=== PATIENT | female | born 1950 | race Caucasian/White ===

== ENCOUNTER → 2017-04-30 08:02 | Outpatient (CLI) | payer MEDICARE, OTHER, SELFPAY ==
--- NOTE | 2017-04-30 08:12 | US_ITS ---
STUDY: ABDOMINAL ULTRASOUND - RIGHT UPPER QUADRANT REASON FOR VISIT: Female, 66 years old. Right upper quadrant pain. TECHNIQUE: Ultrasound evaluation of the right upper quadrant was performed with real-time and static skaggs-scale imaging. TECHNICAL QUALITY: Adequate. COMPARISON: Comparison is made with prior ultrasound of the abdomen dated August 31, 2014. FINDINGS: Liver: The liver measures 14.9 cm. There is increased echogenicity consistent with fatty infiltration. The bile ducts are within normal limits. There is hepatic color flow. The direction of portal flow is hepatopetal. There is no demonstrated mass lesion. Gallbladder: Normal distended gallbladder. The gallbladder wall measures 2.0 mm. There is a positive sonographic Townsend's sign. There is no pericholecystic fluid. There are no gallstones. Common Bile Duct (C.B.D.): The common bile duct measures 2.6 mm. Pancreas: Normal size of the head, body of the pancreas. The tail portion of the pancreas is obscured due to overlying bowel gas. There is normal echogenicity of the pancreas. There is no demonstrated pancreatic mass or cyst. Right Kidney: Normal size of the right kidney. The right kidney measures 10.0 cm x 4.7 cm x 3.9 cm. Normal renal cortex. The right cortex measures 2.1 cm. There is no demonstrated renal mass or cyst. There is no right hydronephrosis. US/Abdomen Limited IMPRESSION: Fatty infiltration of the liver. Electronically Signed: Kam Del Cid MD at 15:36 EST Tel [phone], Service support ,
[2017-04-30 10:20] LABS: Absolute Lymphocyte Count 2.03 X10^3/ul (0.83-4.51); Absolute Neutrophil Count 5.2 X10^3/uL (2.0-7.7); Basophil# 0.05 X10^3/uL; Basophil% 0.6 % (0-1); Eosinophil# 0.22 X10^3/uL; Eosinophils% 2.7 % (0-5); Hematocrit 43.1 % (37-47); Hemoglobin 13.5 g/dl (12.0-15.0); Lymphocyte # 2.03 X10^3/ul (4.0); Lymphocyte % 24.9 % (19-41); Mean Corp Hgb Conc 31.3 g/gl (32-36); Mean Corpuscular Hgb 28.2 pg (27.0-32.0); Mean Platelet Vol. 10.4 fl (6.2-12.0); Monocyte# 0.62 X10^3/uL; Monocyte% 7.6 % (0-10); Neutrophil # 5.21 X10^3/uL (2.7-7.7); Platelet Count 435 K/mm3 (150-450); RBC Distribution Width CV 15.1 % (11.6-14.6); RBC Distribution Width SD 49.5 fl (35.1-43.9); Red Blood Count 4.79 M/mm3 (4.2-5.4); White Blood Count 8.2 K/mm3 (4.4-11.0)
[2017-04-30 10:25] LABS: POSITIVE COUNT NO; POSITIVE DIFFERENTIAL NO; POSITIVE MORPHOLOGY NO
[2017-04-30 10:44] LABS: ALB/GLOB Ratio 0.7 RATIO (0.9-2.4); AST(SGOT) 23 U/L (15-37); Alanine Aminotransfer ALT/SGPT 30 U/L (13-56); Albumin, Serum 3.1 g/dL (3.2-5.0); Alkaline Phosphatase 74 U/L (45-117); Anion Gap 6 (5-15); BUN 10 mg/dL (7-18); BUN/Creat Ratio 12.8 RATIO (10-20); Calcium,Total 8.6 mg/dL (8.5-10.1); Chloride 104 mmol/L (98-107); Cholesterol 141 mg/dL (200); Creatinine, Serum 0.78 mg/dL (0.55-1.02); EST Glomerular Filtration Rate 78 mL/min (>60); Est Glom Filt Rate - Afr Amer 94 mL/min (>60); Globulin 4.2 g/dL (2.2-4.2); Glucose 92 mg/dL (74-106); High Density Lipoprotein 42 mg/dL; Potassium 3.9 mmol/L (3.5-5.1); Protein, Total 7.3 g/dL (6.4-8.2); Sodium Level 141 mmol/L (136-145); Thyroid Stim Hormone (TSH) 0.69 uIU/mL (0.358-3.74); Triglycerides 161 mg/dL; Very Low Density Lipoprotein 32 mg/dL (5-40)
== END ==
PROVIDERS: Family Provider Family Medicine; PCP Family Medicine; Visit Provider Family Medicine
DX: Z00.00 Encounter for general adult medical examination without abnormal findings (principal); E03.9 Hypothyroidism, unspecified; R10.11 Right upper quadrant pain
CPT/HCPCS: 36415; 76705; 80053; 80061; 84443; 85025

== ENCOUNTER → 2017-10-28 08:57 | Outpatient (CLI) | payer MEDICARE, OTHER, SELFPAY ==
[2017-10-28 10:35] LABS: Thyroid Stim Hormone (TSH) 0.37 uIU/mL (0.358-3.74)
== END ==
PROVIDERS: Family Provider Family Medicine; PCP Family Medicine; Visit Provider Family Medicine
DX: E03.9 Hypothyroidism, unspecified (principal)
CPT/HCPCS: 36415; 84443

== ENCOUNTER → 2018-05-11 12:47 | Outpatient (CLI) | payer MEDICARE, OTHER, SELFPAY ==
--- NOTE | 2018-05-11 12:52 | BI_ITS ---
MAMMOGRAPHY - BILATERAL SCREENING REASON FOR EXAM: Female, 67 years old. Routine annual screening examination. PERTINENT HISTORY: Sister with breast cancer. Mother with breast cancer. TECHNIQUE: Digital bilateral breast aime (3D mammographic acquisition) in the CC and MLO projections. 2-D mediolateral oblique (MLO) and craniocaudad (CC) views of both breasts were obtained. CAD: Full Field Digital Mammography with Computer Added Detection was performed. COMPARISON: Comparison is made with prior study dated March 27, 2017 and March 09, 2015. FINDINGS: Breast Composition: There are scattered areas of fibroglandular density. There is a 5.9 mm x 4.5 mm well-defined nodule in the inferior slightly medial portion of the left breast. Correlation with ultrasound is recommended. Stable small bilateral axillary lymph nodes. No other significant abnormalities are identified. There has been no significant change since the prior study. BI/SCREENING MAMM (CAD), BILAT IMPRESSION: 5.9 mm x 4.5 mm well-defined nodule in the slightly inferior medial aspect of the left breast as described. Correlation with ultrasound is recommended. ASSESSMENT CATEGORY: BIRADS Category 0: Incomplete. Need additional imaging evaluation. A letter regarding these results will be sent to the patient by the facility within 30 days. Approximately 10% of breast cancers are not detected by mammography. A normal mammogram should not delay biopsy of a clinically suspicious abnormality. [id number] Electronically Signed: Kam Del Cid, at 14:47 EST , Service support ,
== END ==
PROVIDERS: Family Provider Family Medicine; PCP Family Medicine; Referring Provider Family Medicine; Visit Provider Family Medicine
DX: Z12.31 Encounter for screening mammogram for malignant neoplasm of breast (principal)
CPT/HCPCS: 77063; 77067

== ENCOUNTER → 2018-05-13 10:08 | Outpatient (CLI) | payer MEDICARE, OTHER, SELFPAY ==
--- NOTE | 2018-05-13 10:09 | US_ITS ---
STUDY: ULTRASOUND BREAST - LEFT REASON FOR EXAM: Female, 67 years old. Abnormal screening mammogram. TECHNIQUE: Axial and longitudinal images of the LEFT breast were performed with a high resolution ultrasound transducer. COMPARISON: Comparison is made with prior mammogram dated May 11, 2018. FINDINGS: LEFT Breast: There is a 4 mm x 5 mm x 2 mm cyst at the 6:00 position of the breast at 4 cm from nipple. There is also evidence of a 6 mm x 5 mm x 2 mm cyst at the 7:00 position of the breast at 5 cm from the nipple. US/Breast Limited Unilateral IMPRESSION: 2 small cysts in the inferior medial portion of the left breast. Routine annual mammographic follow-up is recommended. ASSESSMENT CATEGORY: BIRADS Category 2: Benign. A letter regarding these results will be sent to the patient by the facility within 30 days. Electronically Signed: Kam Del Cid, at 12:31 EST , Service support ,
== END ==
PROVIDERS: Family Provider Family Medicine; PCP Family Medicine; Referring Provider Family Medicine; Visit Provider Family Medicine
DX: R92.8 Other abnormal and inconclusive findings on diagnostic imaging of breast (principal); N63.0 Unspecified lump in unspecified breast
CPT/HCPCS: 76642

== ENCOUNTER → 2018-05-22 09:23 | Outpatient (CLI) | payer MEDICARE, OTHER, SELFPAY ==
[2018-05-22 10:15] LABS: Absolute Lymphocyte Count 1.59 X10^3/ul (0.83-4.51); Absolute Neutrophil Count 4.6 X10^3/uL (2.0-7.7); Basophil# 0.04 X10^3/uL; Basophil% 0.6 % (0-1); Eosinophil# 0.11 X10^3/uL; Eosinophils% 1.6 % (0-5); Hematocrit 44.2 % (37-47); Hemoglobin 14.2 g/dl (12.0-15.0); Lymphocyte # 1.59 X10^3/ul (4.0); Lymphocyte % 22.5 % (19-41); Mean Corp Hgb Conc 32.1 g/gl (32-36); Mean Corpuscular Hgb 28.7 pg (27.0-32.0); Mean Corpuscular Volume 89.3 fL (81-99); Mean Platelet Vol. 10.4 fl (6.2-12.0); Monocyte# 0.71 X10^3/uL; POSITIVE COUNT NO; POSITIVE DIFFERENTIAL NO; POSITIVE MORPHOLOGY NO; Platelet Count 415 K/mm3 (150-450); RBC Distribution Width CV 14.6 % (11.6-14.6); RBC Distribution Width SD 47.2 fl (35.1-43.9); Red Blood Count 4.95 M/mm3 (4.2-5.4); White Blood Count 7.1 K/mm3 (4.4-11.0)
[2018-05-22 10:41] LABS: ALB/GLOB Ratio 1.1 RATIO (0.9-2.4); AST(SGOT) 18 U/L (15-37); Alanine Aminotransfer ALT/SGPT 39 U/L (13-56); Albumin, Serum 3.6 g/dL (3.2-5.0); Alkaline Phosphatase 90 U/L (45-117); Anion Gap 6 (5-15); BUN 20 mg/dL (7-18); BUN/Creat Ratio 20.8 RATIO (10-20); CRP 7.77 mg/L (0.0-3.0); Chloride 106 mmol/L (98-107); Creatinine, Serum 0.96 mg/dL (0.55-1.02); EST Glomerular Filtration Rate 61 mL/min (>60); Est Glom Filt Rate - Afr Amer 74 mL/min (>60); Globulin 3.3 g/dL (2.2-4.2); Glucose 91 mg/dL (74-106); Lipase 85 U/L (73-393); Protein, Total 6.9 g/dL (6.4-8.2); Sodium Level 143 mmol/L (136-145)
== END ==
PROVIDERS: Family Provider Family Medicine; PCP Family Medicine; Referring Provider Family Medicine; Visit Provider Family Medicine
DX: R10.13 Epigastric pain (principal)
CPT/HCPCS: 36415; 80053; 83690; 85025; 86140

== ENCOUNTER → 2018-05-26 09:27 | Outpatient (CLI) | payer MEDICARE, OTHER, SELFPAY ==
[2018-05-28 15:56] LABS: H. PYLORI STOOL AG Negative (Negative)
== END ==
PROVIDERS: Family Provider Family Medicine; PCP Family Medicine; Referring Provider Family Medicine; Visit Provider Family Medicine
DX: R10.13 Epigastric pain (principal)

== ENCOUNTER 2018-06-01 08:10 | Inpatient (IN) | payer MEDICARE, OTHER, SELFPAY ==
[2018-06-01 08:11] VITALS: BP 154/78; PULSE 83; RESP 15; TEMP 36.4; O2SAT 100; BMI 33.3
--- NOTE | 2018-06-01 08:32 | EKG12_ITS ---
Test Reason : ABD PAIN Blood Pressure : / mmHG Vent. Rate : 073 BPM Atrial Rate : 073 BPM P-R Int : 202 ms QRS Dur : 082 ms QT Int : 406 ms P-R-T Axes : 050 000 044 degrees QTc Int : 447 ms Sinus rhythm with Fusion complexes Otherwise normal ECG Confirmed by MIKE GUDINO, ISAURA ([id number]), proposal editor MARIAMA PÉREZ ([id number]) on 06/03/2018 1:45:51 PM Referred By: Steve Hill Confirmed By:ISAURA MCKEON MD
--- NOTE | 2018-06-01 08:32 | US_ITS ---
STUDY: ABDOMINAL ULTRASOUND - RIGHT UPPER QUADRANT REASON FOR VISIT: Female, 67 years old. Severe right upper quadrant pain with nausea and vomiting. TECHNIQUE: Ultrasound evaluation of the right upper quadrant was performed with real-time and static skaggs-scale imaging. TECHNICAL QUALITY: Limited. Examination limited due to the patient?s condition. COMPARISON: Comparison is made with prior examination dated April 30, 2017. FINDINGS: Liver: The liver measures 16.1 cm. There is normal echogenicity of the liver. The bile ducts are within normal limits. There is hepatic color flow. The direction of portal flow is hepatopetal. There is no demonstrated mass lesion. Gallbladder: There is a distended gallbladder. The gallbladder wall measures 3.1 mm. There is a negative sonographic Townsend's sign. There is no pericholecystic fluid. Multiple tiny layering gallstones are seen along the dependent portion of the gallbladder lumen. Common Bile Duct (C.B.D.): The common bile duct measures 5.9 mm. Pancreas: Normal size of the head, body and tail of the pancreas. The pancreatic duct measures 2.4 mm in the body of the pancreas. There is normal echogenicity of the pancreas. There is no demonstrated pancreatic mass or cyst. Right Kidney: Normal size of the right kidney. The right kidney measures 10.2 cm by 5.8 cm x 3.7 cm. Normal renal cortex. The right cortex measures 1.6 cm. There is no demonstrated renal mass or cyst. There is no right hydronephrosis. US/Gallbladder IMPRESSION: Findings suggestive of tiny gallstones along the dependent portion of the gallbladder lumen. Electronically Signed: Kam Del Cid, at 10:45 EDT , Service support ,
--- NOTE | 2018-06-01 08:33 | ED.VIS.GEN ---
History of Present Illness Chief Complaint: Abd Pain Informant: Patient, Family Onset: Weeks - 4-5 Context: Gradual Onset Timing: Intermittent, Waxes and wanes - this AM, constant and colicky Quality: ache Location: RUQ Current Severity: Moderate Maximum Severity: Severe - this AM Worsened by: unknown; cannot tell if an association with meals Relieved by: nothing Associated Symptoms: n/v this AM Narrative: Patient has been having episodes of this similar discomfort for the past month or more, cannot tell in association with food although eating seems to produce more gas. Her bowel movements have been normal in caliber and frequency, without blood or melena. She has had nausea on occasion but the pain became much worse this morning within the past 3 hours and associated with nausea and vomiting as well. Pain radiates into her right mid back around the lower part of her shoulder blade. She denies any itching or jaundice. She feels a little short of breath now and anxious, but that has not been part of the other episodes. No chest discomfort. Discomfort is nonpleuritic. No recent coughing. No fevers. No urinary symptoms. She was put on omeprazole about a month ago for these symptoms, a couple weeks ago was placed on some other different stomach medicine in addition, and none of it is helping. She has had no testing yet. Prior tubal ligation to [place], no other abdominal surgeries. - Past Medical History (1) HTN (hypertension) Status: Chronic (2) Thyroid cancer Status: Resolved (3) Hypothyroidism Status: Chronic Past Medical History - Allergies and Home Meds Allergies/Adverse Reactions: Allergies Sulfa (Sulfonamide Antibiotics) Allergy (Verified 06/01/18 08:10) Unknown Primary Care Physician: Steve Hill MD [Primary Care Provider] - Surgical History: - - BTL. Lives: Alone - Smoking Status: Never smoker Drugs: None Review of Systems General: Denies: Chills, Fever, Sweats Eyes: Denies: Visual changes - bilaterally, Diplopia ENT: Denies: Rhinorrhea, Sore throat Cardiovascular: Denies: Chest pain, Palpitations Respiratory: Denies: Dyspnea, Cough, Dyspnea on exertion Gastrointestinal: Reports: Abdominal pain, Nausea, Vomiting. Denies: Diarrhea, Constipation, Melena, Hematochezia Genitourinary: Denies: Dysuria, Hematuria, Frequency Musculoskeletal: Denies: Back pain, Extremity Pain Skin: Denies: Rash, Wounds Neurological: Denies: Headache, Weakness, Numbness Psych: Reports: Anxiety. Denies: Suicidal thoughts Physical Exam Vital Signs/Narrative: Vital Signs Temp Pulse Resp BP Pulse Ox 06/01/18 08:11 97.5 F L 83 15 154/78 H 100 Inital Vital Signs reviewed: Yes General: Well nourished, Well developed, Acute Distress - mild, pain/nausea Head: Normocephalic, Atraumatic Eyes: Perrl, EOMI ENT: Moist mucous membranes, No rhinorrhea Neck: Supple, Nontender Cardiovascular: Regular rate, Regular rhythm, No murmurs, Normal S1, Normal S2. Negative for: Tachycardia Respiratory: No distress - and no splinting on deep inspiration, CTA bilaterally, Chest nontender Abdomen: Soft, Nondistended, Normal bowel sounds, Tender - RUQ>epigastrium. otherwise, NT., Guarding - RUQ, Townsend's sign. Negative for: Rebound tenderness Back: Nontender, Normal Inspection. Negative for: CVA tenderness Extremities: Nontender, No edema Skin: Normal color, No rash Neurological: Alert, Oriented x3, Cranial nerves II-XII grossly intact, Normal Strength, Normal Sensation Psychological: Normal Mood, - - anxious Diagnostic/Tx/Re-eval Impressions Gallbladder Ultrasound 06/01/18 08:32 IMPRESSION: Findings suggestive of tiny gallstones along the dependent portion of the gallbladder lumen. Electronically Signed: Kam Del Cid, at 10:45 EDT , Service support , 06/01/18 08:32 Gallbladder [US] Stat Laboratory Results 06/01/18 06/01/18 08:20 08:20 WBC 8.0 RBC 4.62 Hgb 13.5 Hct 41.0 MCV 88.7 MCH 29.2 MCHC 32.9 RDW 14.8 H RDW Differential 47.8 H Plt Count 412 MPV 10.6 Immature Gran % (Auto) 0.100 Neut % (Auto) 61.1 Lymph % (Auto) 30.3 [place] % (Auto) 6.5 Eos % (Auto) 1.6 Baso % (Auto) 0.4 Absolute Neuts (auto) 4.9 Absolute Lymphs (auto) 2.42 Total Counted Not Reportable Sodium 142 Potassium 3.8 Chloride 109 H Carbon Dioxide 26.0 Anion Gap 7 BUN 19 H Creatinine 0.96 Estim Creat Clear Calc 51.78 Est GFR (MDRD) Af Amer 74 Est GFR (MDRD) Non-Af 61 BUN/Creatinine Ratio 19.8 Glucose 113 H Calcium 8.8 Total Bilirubin 0.40 AST 51 H ALT 41 Alkaline Phosphatase 106 Troponin I < 0.015 Total Protein 7.2 Albumin 3.3 Globulin 3.9 Albumin/Globulin Ratio 0.8 L Lipase 7082 H - Rhythm Strip Rhythm Strip: Sinus Rhythm Rate: 75 Ectopy: PVC(s) - EKG Initial EKG Interpretation: Sinus Rhythm, No Acute Injury Pattern, - - PVC. otherwise, nml EKG - Medical Decision Making Patient is much better with treatment. Cardiac workup is negative, ultrasound shows small biliary stones, she is very tender there, suspect acute cholecystitis and pancreatitis as a result of possible stone passage, however her liver enzymes and bilirubin are normal. Discussed with Dr. Rendon who will admit to floor. ED Disposition - Plan for ED Patient: Disposition: Acute Care Hospital [facility] Diagnosis: Acute calculous cholecystitis, Acute pancreatitis Referrals: Steve Hill MD [Primary Care Provider] -
--- NOTE | 2018-06-01 08:37 | ED.DCSUM_ITS ---
History of Present Illness Chief Complaint: Abd Pain Informant: Patient, Family Onset: Weeks - 4-5 Context: Gradual Onset Timing: Intermittent, Waxes and wanes - this AM, constant and colicky Quality: ache Location: RUQ Current Severity: Moderate Maximum Severity: Severe - this AM Worsened by: unknown; cannot tell if an association with meals Relieved by: nothing Associated Symptoms: n/v this AM Narrative: Patient has been having episodes of this similar discomfort for the past month or more, cannot tell in association with food although eating seems to produce more gas. Her bowel movements have been normal in caliber and frequency, wit hout blood or melena. She has had nausea on occasion but the pain became much worse this morning within the past 3 hours and associated with nausea and vomiting as well. Pain radiates into her right mid back around the lower part of her shoulder blade. She denies any itching or jaundice. She feels a little short of breath now and anxious, but that has not been part of the other episodes. No chest discomfort. Discomfort is nonpleuritic. No recent coughing. No fevers. No urinary symptoms. She was put on omeprazole about a month ago for these symptoms, a couple weeks ago was placed on some other different stomach medicine in addition, and none of it is helping. She has had no testing yet. Prior tubal ligation to [place], no other abdominal surgeries. - Past Medical History (1) HTN (hypertension) Status: Chronic (2) Thyroid cancer Status: Resolved (3) Hypothyroidism Status: Chronic Past Medical History - Allergies and Home Meds Allergies/Adverse Reactions: Allergies Sulfa (Sulfonamide Antibiotics) Allergy (Verified 06/01/18 08:10) Unknown Primary Care Physician: Steve Hill MD [Primary Care Provider] - Surgical History: - - BTL. Lives: Alone - Smoking Status: Never smoker Drugs: None Review of Systems General: Denies: Chills, Fever, Sweats Eyes: Denies: Visual changes - bilaterally, Diplopia ENT: Denies: Rhinorrhea, Sore throat Cardiovascular: Denies: Chest pain, Palpitations Respiratory: Denies: Dyspnea, Cough, Dyspnea on exertion Gastrointestinal: Reports: Abdominal pain, Nausea, Vomiting. Denies: Diarrhea, Constipation, Melena, Hematochezia Genitourinary: Denies: Dysuria, Hematuria, Frequency Musculoskeletal: Denies: Back pain, Extremity Pain Skin: Denies: Rash, Wounds Neurological: Denies: Headache, Weakness, Numbness Psych: Reports: Anxiety. Denies: Suicidal thoughts Physical Exam Vital Signs/Narrative: Vital Signs Temp Pulse Resp BP Pulse Ox 06/01/18 08:11 97.5 F L 83 15 154/78 H 100 Inital Vital Signs reviewed: Yes General: Well nourished, Well developed, Acute Distress - mild, pain/nausea Head: Normocephalic, Atraumatic Eyes: Perrl, EOMI ENT: Moist mucous membranes, No rhinorrhea Neck: Supple, Nontender Cardiovascular: Regular rate, Regular rhythm, No murmurs, Normal S1, Normal S2. Negative for: Tachycardia Respiratory: No distress - and no splinting on deep inspiration, CTA bilaterally, Chest nontender Abdomen: Soft, Nondistended, Normal bowel sounds, Tender - RUQ>epigastrium. otherwise, NT., Guarding - RUQ, Townesnd's sign. Negative for: Rebound tenderness Back: Nontender, Normal Inspection. Negative for: CVA tenderness Extremities: Nontender, No edema Skin: Normal color, No rash Neurological: Alert, Oriented x3, Cranial nerves II-XII grossly intact, Normal Strength, Normal Sensation Psychological: Normal Mood, - - anxious Diagnostic/Tx/Re-eval Impressions Gallbladder Ultrasound 06/01/18 08:32 IMPRESSION: Findings suggestive of tiny gallstones along the dependent portion of the gallbladder lumen. Electronically Signed: Kam Del Cid, at 10:45 EDT , Service support , 06/01/18 08:32 Gallbladder [US] Stat Laboratory Results 06/01/18 06/01/18 08:20 08:20 WBC 8.0 RBC 4.62 Hgb 13.5 Hct 41.0 MCV 88.7 MCH 29.2 MCHC 32.9 RDW 14.8 H RDW Differential 47.8 H Plt Count 412 MPV 10.6 Immature Gran % (Auto) 0.100 Neut % (Auto) 61.1 Lymph % (Auto) 30.3 [place] % (Auto) 6.5 Eos % (Auto) 1.6 Baso % (Auto) 0.4 Absolute Neuts (auto) 4.9 Absolute Lymphs (auto) 2.42 Total Counted Not Reportable Sodium 142 Potassium 3.8 Chloride 109 H Carbon Dioxide 26.0 Anion Gap 7 BUN 19 H Creatinine 0.96 Estim Creat Clear Calc 51.78 Est GFR (MDRD) Af Amer 74 Est GFR (MDRD) Non-Af 61 BUN/Creatinine Ratio 19.8 Glucose 113 H Calcium 8.8 Total Bilirubin 0.40 AST 51 H ALT 41 Alkaline Phosphatase 106 Troponin I < 0.015 Total Protein 7.2 Albumin 3.3 Globulin 3.9 Albumin/Globulin Ratio 0.8 L Lipase 7082 H - Rhythm Strip Rhythm Strip: Sinus Rhythm Rate: 75 Ectopy: PVC(s) - EKG Initial EKG Interpretation: Sinus Rhythm, No Acute Injury Pattern, - - PVC. otherwise, nml EKG - Medical Decision Making Patient is much better with treatment. Cardiac workup is negative, ultrasound shows small biliary stones, she is very tender there, suspect acute cholecystitis and pancreatitis as a result of possible stone passage, however her liver enzymes and bilirubin are normal. Discussed with Dr. Rendon who will admit to floor. ED Disposition - Plan for ED Patient: Disposition: Acute Care Hospital [facility] Diagnosis: Acute calculous cholecystitis, Acute pancreatitis Referrals: Steve Hill MD [Primary Care Provider] -
[2018-06-01 08:42] LABS: Absolute Lymphocyte Count 2.42 X10^3/ul (0.83-4.51); Absolute Neutrophil Count 4.9 X10^3/uL (2.0-7.7); Basophil# 0.03 X10^3/uL; Basophil% 0.4 % (0-1); Eosinophil# 0.13 X10^3/uL; Eosinophils% 1.6 % (0-5); Hemoglobin 13.5 g/dl (12.0-15.0); Lymphocyte # 2.42 X10^3/ul (4.0); Lymphocyte % 30.3 % (19-41); Mean Corp Hgb Conc 32.9 g/gl (32-36); Mean Corpuscular Hgb 29.2 pg (27.0-32.0); Mean Corpuscular Volume 88.7 fL (81-99); Mean Platelet Vol. 10.6 fl (6.2-12.0); Monocyte# 0.52 X10^3/uL; Monocyte% 6.5 % (0-10); Neutrophil # 4.89 X10^3/uL (2.7-7.7); Neutrophil % 61.1 % (47-70); Platelet Count 412 K/mm3 (150-450); RBC Distribution Width CV 14.8 % (11.6-14.6); RBC Distribution Width SD 47.8 fl (35.1-43.9); Red Blood Count 4.62 M/mm3 (4.2-5.4)
[2018-06-01 08:43] LABS: POSITIVE COUNT NO; POSITIVE DIFFERENTIAL NO; POSITIVE MORPHOLOGY NO
[2018-06-01] MEDS: Ketorolac 30 MG/ML Syringe 15 MG IV (08:43)
[2018-06-01] MEDS: Morphine 4 MG/ML Syringe IV ×3 (08:43→17:58)
[2018-06-01] MEDS: Ondansetron 4 MG/2 ML Vial IV ×3 (08:44→21:56)
[2018-06-01] MEDS: 0.9% Normal Saline 1,000 ML 200 ML IV (08:44)
[2018-06-01 08:56] LABS: ALB/GLOB Ratio 0.8 RATIO (0.9-2.4); AST(SGOT) 51 U/L (15-37); Alanine Aminotransfer ALT/SGPT 41 U/L (13-56); Albumin, Serum 3.3 g/dL (3.2-5.0); Alkaline Phosphatase 106 U/L (45-117); Anion Gap 7 (5-15); BUN 19 mg/dL (7-18); BUN/Creat Ratio 19.8 RATIO (10-20); Calcium,Total 8.8 mg/dL (8.5-10.1); Chloride 109 mmol/L (98-107); Creatinine, Serum 0.96 mg/dL (0.55-1.02); EST Glomerular Filtration Rate 61 mL/min (>60); Est Glom Filt Rate - Afr Amer 74 mL/min (>60); Estimated Creatinine Clearance 51.78 ml/min; Globulin 3.9 g/dL (2.2-4.2); Glucose 113 mg/dL (74-106); Lipase 7082 U/L (73-393); Potassium 3.8 mmol/L (3.5-5.1); Protein, Total 7.2 g/dL (6.4-8.2); Sodium Level 142 mmol/L (136-145)
[2018-06-01 10:18] VITALS: BP 134/71; PULSE 62; RESP 17; O2SAT 96
--- NOTE | 2018-06-01 11:33 | CASEMGMT ---
RN CM Assessment Introduced role of RN CM to patient, friend Shivani, and rivas Anand at bedside.? Patient is alert, oriented and able?to participate in RN CM Assessment. ?Care providers, pharmacy, and demographics verified. Presentation: CC: Abd Pain Admit Dx: Gallstone Pancreatitis Re-Admit: No Barriers/Issues: None PCP: Dr Steve Hill Specialists: None Preferred Pharmacy: [facility] Insurance: Medicare A&B, AARP Rx Benefit:?Yes-[employer] ?LNOK: Emery Dumont LW/HPOA: States has both, unsure if on file at [facility], Rivas Dumont Living Arrangements:? Lives alone in a 2 story home, 2 steps to enter ADL?s: Independent with ambulation and ADL's. Works. Transportation: Patient drives, DC- Friend Shivani, Rivas Anand, or other family member DME: None HHC: None SNF: None Goal: Home DC PLAN: Home with no anticipated needs identified at this time. Helio Bolden RNCM
[2018-06-01 12:01] VITALS: BMI 32.0
[2018-06-01 12:09] VITALS: BP 130/63; PULSE 70; RESP 18; TEMP 37.1; O2SAT 99
--- NOTE | 2018-06-01 12:34 | PCM.HP.STD ---
Problem List (1) Gallstone pancreatitis Status: Acute History of Present Illness Date of Admission: 06/01/18 The patient is a 67 year old F who came to the emergency room epigastric pain. The patient reports that for the last few weeks she has been having right upper quadrant pain but this morning she had severe epigastric pain and vomiting. She is not having any fevers or chills. Past Medical History Past Medical History (Chronic Problems): Chronic Problems HTN (hypertension) (Chronic) Hypothyroidism (Chronic) Allergies Sulfa (Sulfonamide Antibiotics) Allergy (Verified 06/01/18 08:10) Unknown Home Medications: Ambulatory Orders Medication Instructions Recorded Levothyroxine Sodium [Levoxyl] 150 mcg PO DAILY 03/16/16 Losartan Potassium [Cozaar] 25 mg PO DAILY 03/16/16 Bupropion HCl [Wellbutrin Xl] 300 mg PO DAILY 06/01/18 Omeprazole [Prilosec] 20 mg PO DAILY 06/01/18 Surgical History: - - BTL. Thyroidectomy Lives: Alone - Smoking Status: Never smoker Drugs: None - *Family History Maternal History Items: No pertinent history Review of Systems Constitutional: Reports: Anorexia. Denies: Chills, Fever HEENT: Denies: Difficulty Swallowing Cardiovascular: Denies: Chest Pain Respiratory: Denies: Cough, Shortness of Breath Gastrointestinal: Reports: Abdominal Pain, Nausea, Vomiting. Denies: Constipation, Diarrhea Genitourinary: Denies: Dysuria Musculoskeletal: Denies: Joint Tenderness Skin: Denies: Jaundice Neurological: Denies: Difficulty swallowing Psychiatric: Denies: Anxiety Hematologic/ Lymphatic: Denies: Anemia VTE Information - Inpt Only VTE Present on Admission: No VTE Mechan Device Prophylaxis: SCD's Patient Problems: Active and Suspected Problems Acute calculous cholecystitis (Acute) Acute pancreatitis (Acute) Gallstone pancreatitis (Acute) - Physical Exam General: Alert, Oriented x3, Cooperative Neck: No JVD Lungs: Normal air movement Cardiovascular: Regular rate, Regular Rhythm Abdomen: Soft, Non-Distended, Tender Extremities: No clubbing Skin: No rashes Musculoskeletal: No Muscle Wasting Neurological: Cranial nerves II-XII grossly intact Psych/Mental Status: Normal Affect Vital Signs Temp Pulse Resp BP Pulse Ox 98.7 F 70 18 130/63 H 99 06/01/18 12:09 06/01/18 12:09 06/01/18 12:09 06/01/18 12:09 06/01/18 12:09 Oxygen Delivery Method Room Air Weight: 201 lb 8.04 oz Body Mass Index (BMI) 32.0 Laboratory Tests Past 24 Hrs 06/01/18 06/01/18 08:20 08:20 WBC 8.0 RBC 4.62 Hgb 13.5 Hct 41.0 MCV 88.7 MCH 29.2 MCHC 32.9 RDW 14.8 H RDW Differential 47.8 H Plt Count 412 MPV 10.6 Immature Gran % (Auto) 0.100 Neut % (Auto) 61.1 Lymph % (Auto) 30.3 [place] % (Auto) 6.5 Eos % (Auto) 1.6 Baso % (Auto) 0.4 Absolute Neuts (auto) 4.9 Absolute Lymphs (auto) 2.42 Total Counted Not Reportable Sodium 142 Potassium 3.8 Chloride 109 H Carbon Dioxide 26.0 Anion Gap 7 BUN 19 H Creatinine 0.96 Estim Creat Clear Calc 51.78 Est GFR (MDRD) Af Amer 74 Est GFR (MDRD) Non-Af 61 BUN/Creatinine Ratio 19.8 Glucose 113 H Calcium 8.8 Total Bilirubin 0.40 AST 51 H ALT 41 Alkaline Phosphatase 106 Troponin I < 0.015 Total Protein 7.2 Albumin 3.3 Globulin 3.9 Albumin/Globulin Ratio 0.8 L Lipase 7082 H Clinical Impression(s) from Imaging Studies Gallbladder Ultrasound 06/01/18 08:32 IMPRESSION: Findings suggestive of tiny gallstones along the dependent portion of the gallbladder lumen. Electronically Signed: Kam Del Cid, at 10:45 EDT , Service support , Assessment/Plan All Active Problems Thyroid cancer (Resolved) Acute calculous cholecystitis (Acute) Acute pancreatitis (Acute) Gallstone pancreatitis (Acute) 67-year-old female with gallstone pancreatitis 1. Patient has small gallstones on ultrasound of her gallbladder with no thickening. Her white count is normal. She does have an elevated lipase. She likely has gallstone pancreatitis. Her LFTs are normal today and I believe she may have passed a stone causing the pancreatitis. I will recheck labs in the morning and keep her n.p.o. and give her IV fluids. I will also start cefotetan in case there is an element of acute cholecystitis. I explained that tomorrow I would take her for a laparoscopic cholecystectomy with cholangiogram to prevent this from happening again and rule out choledocholithiasis. 2. If her LFTs increase overnight I will take her for ERCP and stent tomorrow. Patient understands and I described laparoscopic cholecystectomy in detail. I described the risks including but not limited to bleeding, infection, perforation of the bile duct, injury to bile duct or liver, injury to bowel. Patient consents to proceed with laparoscopic cholecystectomy tomorrow. Arden Crowell MD Pager: [facility] [address] [place] [address] [address] [place] [address] Office:
--- NOTE | 2018-06-01 12:37 | HP.PCM_ITS ---
Problem List (1) Gallstone pancreatitis Status: Acute History of Present Illness Date of Admission: 06/01/18 The patient is a 67 year old F who came to the emergency room epigastric pain. The patient reports that for the last few weeks she has been having right upper quadrant pain but this morning she had severe epigastric pain and vomiting. She is not having any fevers or chills. Past Medical History Past Medical History (Chronic Problems): Chronic Problems HTN (hypertension) (Chronic) Hypothyroidism (Chronic) Allergies Sulfa (Sulfonamide Antibiotics) Allergy (Verified 06/01/18 08:10) Unknown Home Medications: Ambulatory Orders Medication Instructions Recorded Levothyroxine Sodium [Levoxyl] 150 mcg PO DAILY 03/16/16 Losartan Potassium [Cozaar] 25 mg PO DAILY 03/16/16 Bupropion HCl [Wellbutrin Xl] 300 mg PO DAILY 06/01/18 Omeprazole [Prilosec] 20 mg PO DAILY 06/01/18 Surgical History: - - BTL. Thyroidectomy Lives: Alone - Smoking Status: Never smoker Drugs: None - *Family History Maternal History Items: No pertinent history Review of Systems Constitutional: Reports: Anorexia. Denies: Chills, Fever HEENT: Denies: Difficulty Swallowing Cardiovascular: Denies: Chest Pain Respiratory: Denies: Cough, Shortness of Breath Gastrointestinal: Reports: Abdominal Pain, Nausea, Vomiting. Denies: Constipation, Diarrhea Genitourinary: Denies: Dysuria Musculoskeletal: Denies: Joint Tenderness Skin: Denies: Jaundice Neurological: Denies: Difficulty swallowing Psychiatric: Denies: Anxiety Hematologic/ Lymphatic: Denies: Anemia VTE Information - Inpt Only VTE Present on Admission: No VTE Mechan Device Prophylaxis: SCD's Patient Problems: Active and Suspected Problems Acute calculous cholecystitis (Acute) Acute pancreatitis (Acute) Gallstone pancreatitis (Acute) - Physical Exam General: Alert, Oriented x3, Cooperative Neck: No JVD Lungs: Normal air movement Cardiovascular: Regular rate, Regular Rhythm Abdomen: Soft, Non-Distended, Tender Extremities: No clubbing Skin: No rashes Musculoskeletal: No Muscle Wasting Neurological: Cranial nerves II-XII grossly intact Psych/Mental Status: Normal Affect Vital Signs Temp Pulse Resp BP Pulse Ox 98.7 F 70 18 130/63 H 99 06/01/18 12:09 06/01/18 12:09 06/01/18 12:09 06/01/18 12:09 06/01/18 12:09 Oxygen Delivery Method Room Air Weight: 201 lb 8.04 oz Body Mass Index (BMI) 32.0 Laboratory Tests Past 24 Hrs 06/01/18 06/01/18 08:20 08:20 WBC 8.0 RBC 4.62 Hgb 13.5 Hct 41.0 MCV 88.7 MCH 29.2 MCHC 32.9 RDW 14.8 H RDW Differential 47.8 H Plt Count 412 MPV 10.6 Immature Gran % (Auto) 0.100 Neut % (Auto) 61.1 Lymph % (Auto) 30.3 [place] % (Auto) 6.5 Eos % (Auto) 1.6 Baso % (Auto) 0.4 Absolute Neuts (auto) 4.9 Absolute Lymphs (auto) 2.42 Total Counted Not Reportable Sodium 142 Potassium 3.8 Chloride 109 H Carbon Dioxide 26.0 Anion Gap 7 BUN 19 H Creatinine 0.96 Estim Creat Clear Calc 51.78 Est GFR (MDRD) Af Amer 74 Est GFR (MDRD) Non-Af 61 BUN/Creatinine Ratio 19.8 Glucose 113 H Calcium 8.8 Total Bilirubin 0.40 AST 51 H ALT 41 Alkaline Phosphatase 106 Troponin I < 0.015 Total Protein 7.2 Albumin 3.3 Globulin 3.9 Albumin/Globulin Ratio 0.8 L Lipase 7082 H Clinical Impression(s) from Imaging Studies Gallbladder Ultrasound 06/01/18 08:32 IMPRESSION: Findings suggestive of tiny gallstones along the dependent portion of the gallbladder lumen. Electronically Signed: Kam Del Cid, at 10:45 EDT , Service support , Assessment/Plan All Active Problems Thyroid cancer (Resolved) Acute calculous cholecystitis (Acute) Acute pancreatitis (Acute) Gallstone pancreatitis (Acute) 67-year-old female with gallstone pancreatitis 1. Patient has small gallstones on ultrasound of her gallbladder with no thickening. Her white count is normal. She does have an elevated lipase. She likely has gallstone pancreatitis. Her LFTs are normal today and I believe she may have passed a stone causing the pancreatitis. I will recheck labs in the morning and keep her n.p.o. and give her IV fluids. I will also start cefotetan in case there is an element of acute cholecystitis. I explained that tomorrow I would take her for a laparoscopic cholecystectomy with cholangiogram to prevent this from happening again and rule out choledocholithiasis. 2. If her LFTs increase overnight I will take her for ERCP and stent tomorrow. Patient understands and I described laparoscopic cholecystectomy in detail. I described the risks including but not limited to bleeding, infection, perforation of the bile duct, injury to bile duct or liver, injury to bowel. Patient consents to proceed with laparoscopic cholecystectomy tomorrow. Arden Crowell MD Pager: [facility] [address] [place] [address] [address] [place] [address] Office:
[2018-06-01] MEDS: 0.9% NaCl Peripheral Flush Adult/Peds IV ×4 (12:39→21:58)
[2018-06-01] MEDS: Morphine 2 MG/ML Syringe IV (12:39)
[2018-06-01] MEDS: 0.9% Normal Saline 1,000 ML 150 ML IV ×2 (12:55→20:19)
[2018-06-01 13:37] VITALS: O2SAT 95
[2018-06-01] MEDS: proMETHazine 25 MG/ML Syringe 12.5 MG IV (17:58)
[2018-06-01 21:45] VITALS: BP 110/54; PULSE 67; RESP 18; TEMP 37; O2SAT 96
[2018-06-02] VITALS (13 sets, daily range): BP systolic 109–144; BP diastolic 56–75; PULSE 66–91; RESP 16–18; TEMP 36.2–37.4; O2SAT 94–100; BMI 32.6; BMI 32.0
[2018-06-02] MEDS: 0.9% Normal Saline 1,000 ML 150 ML IV ×2 (03:22→09:47)
[2018-06-02 06:17] LABS: Absolute Lymphocyte Count 1.61 X10^3/ul (0.83-4.51); Absolute Neutrophil Count 4.3 X10^3/uL (2.0-7.7); Basophil# 0.04 X10^3/uL; Basophil% 0.6 % (0-1); Eosinophil# 0.19 X10^3/uL; Eosinophils% 2.8 % (0-5); Hematocrit 36.8 % (37-47); Hemoglobin 11.5 g/dl (12.0-15.0); Lymphocyte # 1.61 X10^3/ul (4.0); Lymphocyte % 23.9 % (19-41); Mean Corp Hgb Conc 31.3 g/gl (32-36); Mean Corpuscular Hgb 28.9 pg (27.0-32.0); Mean Corpuscular Volume 92.5 fL (81-99); Mean Platelet Vol. 10.8 fl (6.2-12.0); Monocyte% 8.9 % (0-10); Neutrophil # 4.28 X10^3/uL (2.7-7.7); Neutrophil % 63.7 % (47-70); Platelet Count 327 K/mm3 (150-450); RBC Distribution Width CV 15.2 % (11.6-14.6); RBC Distribution Width SD 49.8 fl (35.1-43.9); Red Blood Count 3.98 M/mm3 (4.2-5.4); White Blood Count 6.7 K/mm3 (4.4-11.0)
[2018-06-02 06:21] LABS: POSITIVE COUNT NO; POSITIVE DIFFERENTIAL NO; POSITIVE MORPHOLOGY NO
[2018-06-02 06:28] LABS: ALB/GLOB Ratio 0.8 RATIO (0.9-2.4); AST(SGOT) 29 U/L (15-37); Alanine Aminotransfer ALT/SGPT 44 U/L (13-56); Albumin, Serum 2.4 g/dL (3.2-5.0); Alkaline Phosphatase 90 U/L (45-117); Anion Gap 4 (5-15); BUN 12 mg/dL (7-18); BUN/Creat Ratio 11.8 RATIO (10-20); Calcium,Total 7.5 mg/dL (8.5-10.1); Chloride 115 mmol/L (98-107); Creatinine, Serum 1.02 mg/dL (0.55-1.02); EST Glomerular Filtration Rate 57 mL/min (>60); Est Glom Filt Rate - Afr Amer 69 mL/min (>60); Estimated Creatinine Clearance 48.73 ml/min; Glucose 81 mg/dL (74-106); Lipase 266 U/L (73-393); Potassium 3.6 mmol/L (3.5-5.1); Protein, Total 5.4 g/dL (6.4-8.2); Sodium Level 147 mmol/L (136-145)
--- NOTE | 2018-06-02 08:05 | PCM.PN.SRG ---
Patient Problems: Active and Suspected Problems Acute calculous cholecystitis (Acute) Acute pancreatitis (Acute) Gallstone pancreatitis (Acute) Subjective: Patient is feeling much better this morning with no nausea and minimal abdominal pain. - Physical Exam General: Alert, Cooperative Lungs: Normal air movement Cardiovascular: Regular rate, Regular Rhythm Abdomen: Soft, Non Tender, Non-Distended Vital Signs Temp Pulse Resp BP Pulse Ox 99.1 F 66 16 109/57 L 96 06/02/18 03:25 06/02/18 03:25 06/02/18 03:25 06/02/18 03:25 06/02/18 03:25 Oxygen Delivery Method Room Air Weight: 201 lb 8.04 oz Body Mass Index (BMI) 32.0 Intake and Output for Last 24 Hours 05/31/18 06/01/18 06/02/18 23:59 23:59 23:59 Intake Total 1360 / 1360 1191 / 1191 Output Total 500 / 500 Balance 860 / 860 1191 / 1191 Laboratory Tests Past 24 Hrs 06/01/18 06/01/18 06/02/18 08:20 08:20 05:20 WBC 8.0 6.7 RBC 4.62 3.98 L Hgb 13.5 11.5 L Hct 41.0 36.8 L MCV 88.7 92.5 MCH 29.2 28.9 MCHC 32.9 31.3 L RDW 14.8 H 15.2 H RDW Differential 47.8 H 49.8 H Plt Count 412 327 MPV 10.6 10.8 Immature Gran % (Auto) 0.100 0.100 Neut % (Auto) 61.1 63.7 Lymph % (Auto) 30.3 23.9 [place] % (Auto) 6.5 8.9 Eos % (Auto) 1.6 2.8 Baso % (Auto) 0.4 0.6 Absolute Neuts (auto) 4.9 4.3 Absolute Lymphs (auto) 2.42 1.61 Total Counted Not Reportable Not Reportable Sodium 142 Potassium 3.8 Chloride 109 H Carbon Dioxide 26.0 Anion Gap 7 BUN 19 H Creatinine 0.96 Estim Creat Clear Calc 51.78 Est GFR (MDRD) Af Amer 74 Est GFR (MDRD) Non-Af 61 BUN/Creatinine Ratio 19.8 Glucose 113 H Calcium 8.8 Total Bilirubin 0.40 AST 51 H ALT 41 Alkaline Phosphatase 106 Troponin I < 0.015 Total Protein 7.2 Albumin 3.3 Globulin 3.9 Albumin/Globulin Ratio 0.8 L Lipase 7082 H 06/02/18 05:20 WBC RBC Hgb Hct MCV MCH MCHC RDW RDW Differential Plt Count MPV Immature Gran % (Auto) Neut % (Auto) Lymph % (Auto) [place] % (Auto) Eos % (Auto) Baso % (Auto) Absolute Neuts (auto) Absolute Lymphs (auto) Total Counted Sodium 147 H Potassium 3.6 Chloride 115 H Carbon Dioxide 28.0 Anion Gap 4 L BUN 12 Creatinine 1.02 Estim Creat Clear Calc 48.73 Est GFR (MDRD) Af Amer 69 Est GFR (MDRD) Non-Af 57 L BUN/Creatinine Ratio 11.8 Glucose 81 Calcium 7.5 L Total Bilirubin 0.40 AST 29 ALT 44 Alkaline Phosphatase 90 Troponin I Total Protein 5.4 L Albumin 2.4 L Globulin 3.0 Albumin/Globulin Ratio 0.8 L Lipase 266 Medical Necessity - Tobacco Use Smoking Status: Never smoker Assessment/Plan All Active Problems Thyroid cancer (Resolved) Acute calculous cholecystitis (Acute) Acute pancreatitis (Acute) Gallstone pancreatitis (Acute) 67-year-old female with gallstone pancreatitis 1. Patient's lipase is improved as is her abdominal pain. Her LFTs continue to be normal. I will take her this afternoon for a laparoscopic cholecystectomy. Arden Crowell MD Pager: [facility] [address] [place] [address], [address] [place] [address] Office:
[2018-06-02] MEDS: buPROPion (XL) 300 MG TABLET.XL PO (09:44)
[2018-06-02] MEDS: Levothyroxine 150 MCG Tablet PO (09:44)
[2018-06-02] MEDS: Ondansetron 4 MG/2 ML Vial IV ×2 (12:25→23:06)
--- NOTE | 2018-06-02 14:45 | GALL_PTH ---
PATIENT: ERIKA MARTÍNEZ LOC: MS3 U#:[id number] AGE/SX: 67/F ROOM: [facility] RE06/02/[address]: Dr. Arden Crowell MD : [id number] BED: 1 DIS: 06/03/2018 SPEC #: [id number] RECD: 06/03/18 07:49 STATUS: SHIKHA ROSA #: [id number] LADI: 06/02/18 14:[address]: Arden Crowell DEPT: SURGICAL PATHOLOGY RECD BY: Alireza Hopkins ENTERED: 06/03/18 12:58 SP TYPE: MARI PORTER DR: Dr. Steve Hill MD Tissues: Gallbladder, NOS Procedures: Surgery Specimen Level III HEADER OPERATION: Laparoscopic cholecystectomy with IOC PRE-OP DIAGNOSIS: Gallstone pancreatitis TISSUE SUBMITTED: Gallbladder MICROSCOPIC DIAGNOSIS Gallbladder, cholecystectomy: Chronic cholecystitis and cholelithiasis. AM:adriana 3/28/19 MICROSCOPIC DESCRIPTION Slides are reviewed. GROSS DESCRIPTION Received is one container labeled with the patient's name and designated gallbladder. The specimen consists of a gallbladder measuring 9 cm in length and up to 5.5 cm in diameter. The external surface is pink-ramos, smooth and glistening for the most part. Focally it is granular, hemorrhagic and contains cautery artifact. The gallbladder contains green-yellow mucoid bile and multiple mulberry light yellowish-green stones measuring in aggregate 1 x 0.5 x 0.2 cm and 0.1 to 0.2 cm in greatest dimension. The mucosa is bile-stained and without any mass lesions. The gallbladder wall measures up to 0.2 cm in thickness. Online Marketing Manager sections from the gallbladder and the cystic duct are submitted in one cassette. / SJ:rg 06/03/18 TC:3 CPT: 50175
--- NOTE | 2018-06-02 15:40 | RAD_ITS ---
STUDY: INTRAOPERATIVE CHOLANGIOGRAM. REASON FOR EXAM: Female, 67 years old. Laparoscopic cholecystectomy. FLUOROSCOPY TIME (if supplied): (0:11) minutes/seconds TECHNIQUE: Intraoperative glandular was performed by the surgeon. Imaging was submitted. COMPARISON: None. FINDINGS: The common bile duct is not dilated. No intraluminal filling defect is seen. There is free flow of contrast into the duodenum. The pancreatic duct is opacified as well. RAD/Cholangiogram/ O R,Initial IMPRESSION: Unremarkable intraoperative cholangiogram. Electronically Signed: Kam Del Cid, at 16:07 EDT , Service support ,
[2018-06-02] MEDS: Bupiv/Epi 0.25% 30 ML Vial (16:15)
--- NOTE | 2018-06-02 16:20 | OP.PCM_ITS ---
Problem List (1) Gallstone pancreatitis Status: Acute Report of Operation Date of Procedure: 06/02/18 Pre-Operative Diagnosis: Gallstone pancreatitis Post-Operative Diagnosis: Same Surgery/Procedure Performed:: Laparoscopic cholecystectomy with cholangiogram Specimen's removed: Gallbladder and contents Estimated Blood Loss (mL): 200 Description of Procedure: After obtaining informed consent patient was brought back to the operating room. General anesthesia was induced. The abdomen was prepped and draped in usual sterile fashion. A small midline incision was made superior to the umbilicus and deepened to the level of fascia. The fascia was elevated and incised. Next the peritoneum was elevated and incised in the same fashion. Finger sweep was performed and the Mansfield trocar was placed into the abdomen. The balloon was inflated. The abdomen was inflated to 15 mmHg. Next a camera was introduced into the abdomen and the abdomen was inspected. Next under direct visualization three 5-mm ports were placed one subxiphoid and 2 subcostal. Next the gallbladder was elevated and retracted toward the right shoulder. The per itoneum was stripped from the gallbladder. The infundibulum was located and retracted laterally. Next the triangle of Calot was dissected and the cystic duct and cystic artery were identified. Cholangiograms were performed. The Chatterjee clamp was used to clamp across the infundibulum and the catheter needle was inserted into the gallbladder. Under fluoroscopy contrast was instilled into the gallbladder and the common duct, cystic duct as well as proximal hepatic ducts were identified. There was good filling of the duodenum. There were no filling defects noted in the common bile duct. The clamp was removed as well as the needle and the infundibulum was grasped once more. Three hemolock clips were placed across the cystic duct. The cystic duct was then divided leaving 2 clips on the stump. The cystic artery was clipped and divided in the same fashion. When the cystic artery was divided there was some bleeding where the posterior part of the artery retracted from the clip. The artery was dissected free more distally and clipped again and the bleeding stopped adequately. There was approximately 200 cc blood loss while the bleeding was controlled. The hook cautery was then used to take the gallbladder off of the gallbladder bed. Hemostasis was obtained. Gallbladder fossa was irrigated and no active bleeding or bile leakage was noted. Next the camera switched to a 5 mm camera and introduced in the subxiphoid port. An Endopouch bag was placed through the umbilical port and the gallbladder was placed into it. The gallbladder was then removed through the umbilical incision. The camera was then reinserted through the umbilical port. The gallbladder fossa was inspected once more and noted to be hemostatic with no leaking bile. The abdomen was suctioned dry. The 5 mm ports were removed under direct visualization. The umbilical port was then removed and the air was removed from the abdomen. Next using an 0 Vicryl suture the umbilical fascia was closed in a [id number] fashion. The umbilical port site was irrigated local anesthetic was administered to all the incisions. All the incisions were closed with interrupted subcuticular 4-0 Monocryl sutures followed by Steri-Strips and dressings. The patient was awoken and taken to PACU in stable condition. - Admit VTE Documentation VTE Mechan Device Prophylaxis: SCD's
[2018-06-02] MEDS: Morphine 4 MG/ML Syringe IV (19:52)
--- NOTE | 2018-06-02 22:34 | NURSING ---
PT WALKED TO THE BATHROOM. GAIT STEADY. PT VOIDED AND THEN ASST TO CHAIR. PT GIVEN IS TO USE
--- NOTE | 2018-06-02 23:10 | NURSING ---
pt sitting in chair. c/o feeling nausea and weak. pt taken back to bed. vitals done. abd incision the same. will monitor
[2018-06-03] MEDS: 0.9% Normal Saline 1,000 ML 75 ML IV (02:48)
[2018-06-03 02:56] VITALS: BP 124/57; PULSE 85; RESP 17; TEMP 36.4; O2SAT 98
[2018-06-03] MEDS: Levothyroxine 150 MCG Tablet PO (06:08)
[2018-06-03 07:13] LABS: Absolute Lymphocyte Count 0.98 X10^3/ul (0.83-4.51); Absolute Neutrophil Count 7.6 X10^3/uL (2.0-7.7); Basophil# 0.03 X10^3/uL; Basophil% 0.3 % (0-1); Eosinophil# 0.01 X10^3/uL; Eosinophils% 0.1 % (0-5); Hematocrit 38.1 % (37-47); Hemoglobin 12.1 g/dl (12.0-15.0); Lymphocyte # 0.98 X10^3/ul (4.0); Lymphocyte % 10.7 % (19-41); Mean Corp Hgb Conc 31.8 g/gl (32-36); Mean Corpuscular Volume 91.4 fL (81-99); Mean Platelet Vol. 10.3 fl (6.2-12.0); Monocyte# 0.58 X10^3/uL; Monocyte% 6.3 % (0-10); Neutrophil # 7.57 X10^3/uL (2.7-7.7); Neutrophil % 82.4 % (47-70); POSITIVE COUNT NO; POSITIVE DIFFERENTIAL NO; POSITIVE MORPHOLOGY NO; Platelet Count 337 K/mm3 (150-450); RBC Distribution Width CV 15.3 % (11.6-14.6); RBC Distribution Width SD 50.3 fl (35.1-43.9); Red Blood Count 4.17 M/mm3 (4.2-5.4); White Blood Count 9.2 K/mm3 (4.4-11.0)
[2018-06-03 07:49] LABS: ALB/GLOB Ratio 0.8 RATIO (0.9-2.4); AST(SGOT) 34 U/L (15-37); Alanine Aminotransfer ALT/SGPT 53 U/L (13-56); Albumin, Serum 2.5 g/dL (3.2-5.0); Alkaline Phosphatase 94 U/L (45-117); Anion Gap 6 (5-15); BUN 9 mg/dL (7-18); Chloride 111 mmol/L (98-107); Creatinine, Serum 0.82 mg/dL (0.55-1.02); EST Glomerular Filtration Rate 74 mL/min (>60); Est Glom Filt Rate - Afr Amer 89 mL/min (>60); Estimated Creatinine Clearance 60.62 ml/min; Glucose 89 mg/dL (74-106); Potassium 4.1 mmol/L (3.5-5.1); Protein, Total 5.5 g/dL (6.4-8.2); Sodium Level 144 mmol/L (136-145)
[2018-06-03 08:57] VITALS: BP 131/55; PULSE 65; RESP 14; TEMP 36.6; O2SAT 97
[2018-06-03] MEDS: buPROPion (XL) 300 MG TABLET.XL PO (09:44)
--- NOTE | 2018-06-03 10:10 | DCINST_ITS ---
Discharge Diet: Light diet - advance as tolerated Discharge Activity: Return to Normal Activity, May Not Drive - for 2-3 days or while taking narcotic pain medicataions., - - Do not drive, work heavy equipment or sign legal documents for 24 hours. May shower in (days): 1 - with the bandage in place. Lifting Restrictions: 20 lbs for 2 weeks Additional Activity Instructions:: Pain medication may cause nausea. You should typically eat light foods as you take your pain medications. Pain medication may also cause constipation. If this is a problem for you, please discuss with your doctor. Call your doctor if your incision/area has: Continuous Slow Oozing, Sudden Increased Bleeding, Increased Pain/ Swelling, Increased Redness, Foul Smelling Discharge, Fever of 101 or Higher Call your doctor if you observe: Fever of 101 or Higher Suture Line Care: Avoid Pulling/Pushing, Avoid Pinching/Bending Additional Dressing/Incision Instructions:: Leave operative bandaids on for 2 days. When you remove dressing, leave Steri-Strips on until your follow-up appointment, or until the Steri-Strips fall off on their own. Allergies/Adverse Reactions: Allergies Sulfa (Sulfonamide Antibiotics) Allergy (Verified 06/01/18 08:10) Unknown Medications to take at Discharge Levothyroxine Sodium [Levoxyl] 150 mcg PO DAILY 03/16/16 Losartan Potassium [Cozaar] 25 mg PO DAILY 03/16/16 Bupropion HCl [Wellbutrin Xl] 300 mg PO DAILY 06/01/18 Omeprazole [Prilosec] 20 mg PO DAILY 06/01/18 Oxycodone HCl/Acetaminophen [Percocet 5/325] 1 - 2 tablet PO Q4H PRN PRN 7 Days #30 tablet 06/03/18 The following prescriptions were given: Oxycodone HCl/Acetaminophen [Percocet 5/325] 1 - 2 tablet PO Q4H PRN PRN 7 Days #30 tablet PRN Reason: Pain Primary Care Physician: Stvee Hill MD [Primary Care Provider] - Test Results: Test results from this visit will be discussed in further detail at your follow- up appointment, if applicable. Please Follow Up With: Arden Crowell MD When: Please call to schedule 2 week follow up appointment. [phone]
--- NOTE | 2018-06-03 10:11 | DS.PCM_ITS ---
Discharge Date and Diagnosis - Problem List Patient Problems: Active and Suspected Problems Acute calculous cholecystitis (Acute) Acute pancreatitis (Acute) Gallstone pancreatitis (Acute) Date of Admission: 06/01/18 Date of Discharge: 06/03/18 - Primary Discharge Diagnosis Active and Suspected Problems Acute calculous cholecystitis (Acute) Acute pancreatitis (Acute) Gallstone pancreatitis (Acute) - Secondary Discharge Diagnosis Chronic Problems HTN (hypertension) (Chronic) Hypothyroidism (Chronic) Hospital Course and Treatment Imaging Results: Clinical Impression(s) from Imaging Studies Gallbladder Ultrasound 06/01/18 08:32 IMPRESSION: Findings suggestive of tiny gallstones along the dependent portion of the gallbladder lumen. Electronically Signed: Kam Nehemias, at 10:45 EDT , Service support , Cholangiogram 06/02/18 15:40 IMPRESSION: Unremarkable intraoperative cholangiogram. Electronically Signed: Kam Del Cid, at 16:07 EDT , Service support , Operations: cholecystecomy Procedures: None Summary of Care Provided: The patient is a 67 year old F was admitted with gallstone pancreatitis. The following day she was taken for laparoscopic cholecystectomy. Cholangiogram showed no choledocholithiasis. The following day she was doing well and tolerat ing a diet and was discharged home in stable condition. Patient Problems: Active and Suspected Problems Acute calculous cholecystitis (Acute) Acute pancreatitis (Acute) Gallstone pancreatitis (Acute) - Physical Exam General: Alert, Oriented x3, Cooperative Lungs: Normal air movement Cardiovascular: Regular rate, Regular Rhythm Abdomen: Soft, Non-Distended, Tender - mild Vital Signs Temp Pulse Resp BP Pulse Ox 97.8 F 65 14 131/55 H 97 06/03/18 08:57 06/03/18 08:57 06/03/18 08:57 06/03/18 08:57 06/03/18 08:57 Oxygen Flow Rate (L/min) 2 Oxygen Delivery Method Room Air Weight: 205 lb 4.006 oz Body Mass Index (BMI) 32.6 Intake and Output for Last 24 Hours 06/01/18 06/02/18 06/03/18 23:59 23:59 23:59 Intake Total 1360 / 1360 4797 / 4797 627 / 627 Output Total 500 / 500 Balance 860 / 860 4772 / 4772 627 / 627 Laboratory Tests Past 24 Hrs 06/03/18 06/03/18 07:04 07:04 WBC 9.2 RBC 4.17 L Hgb 12.1 Hct 38.1 MCV 91.4 MCH 29.0 MCHC 31.8 L RDW 15.3 H RDW Differential 50.3 H Plt Count 337 MPV 10.3 Immature Gran % (Auto) 0.200 Neut % (Auto) 82.4 H Lymph % (Auto) 10.7 L [place] % (Auto) 6.3 Eos % (Auto) 0.1 Baso % (Auto) 0.3 Absolute Neuts (auto) 7.6 Absolute Lymphs (auto) 0.98 Total Counted Not Reportable Sodium 144 Potassium 4.1 Chloride 111 H Carbon Dioxide 27.0 Anion Gap 6 BUN 9 Creatinine 0.82 Estim Creat Clear Calc 60.62 Est GFR (MDRD) Af Amer 89 Est GFR (MDRD) Non-Af 74 BUN/Creatinine Ratio 11.0 Glucose 89 Calcium 8.0 L Total Bilirubin 0.40 AST 34 ALT 53 Alkaline Phosphatase 94 Total Protein 5.5 L Albumin 2.5 L Globulin 3.0 Albumin/Globulin Ratio 0.8 L Discharge Diet: Light diet - advance as tolerated Discharge Activity: Return to Normal Activity, May Not Drive - for 2-3 days or while taking narcotic pain medicataions., - - Do not drive, work heavy equipment or sign legal documents for 24 hours. May shower in (days): 1 - with the bandage in place. Additional Activity Instructions:: Pain medication may cause nausea. You should typically eat light foods as you take your pain medications. Pain medication may also cause constipation. If this is a problem for you, please discuss with your doctor. Call your doctor if your incision/area has: Continuous Slow Oozing, Sudden Increased Bleeding, Increased Pain/ Swelling, Increased Redness, Foul Smelling Discharge, Fever of 101 or Higher Call your doctor if you observe: Fever of 101 or Higher Suture Line Care: Avoid Pulling/Pushing, Avoid Pinching/Bending Additional Dressing/Incision Instructions:: Leave operative bandaids on for 2 days. When you remove dressing, leave Steri-Strips on until your follow-up appointment, or until the Steri-Strips fall off on their own. Home Medications: Medications to take at Discharge Levothyroxine Sodium [Levoxyl] 150 mcg PO DAILY 03/16/16 Losartan Potassium [Cozaar] 25 mg PO DAILY 03/16/16 Bupropion HCl [Wellbutrin Xl] 300 mg PO DAILY 06/01/18 Omeprazole [Prilosec] 20 mg PO DAILY 06/01/18 Oxycodone HCl/Acetaminophen [Percocet 5/325] 1 - 2 tablet PO Q4H PRN PRN 7 Days #30 tablet 06/03/18 Following Prescrptions Were Given to Patient: Oxycodone HCl/Acetaminophen [Percocet 5/325] 1 - 2 tablet PO Q4H PRN PRN 7 Days #30 tablet PRN Reason: Pain Primary Care Physician: Steve Hill MD [Primary Care Provider] - Please Follow Up With: Arden Crowell MD When: Please call to schedule 2 week follow up appointment. [phone] Medical Necessity - Tobacco Use Smoking Status: Never smoker Meaningful Use Info Meaningful Use Diagnoses (Choose all that apply): None applicable
--- NOTE | 2018-06-03 10:50 | CASEMGMT ---
RN GREGORIA Face to Face with patient for initial transition planning/care coordination assessment. RN CM introduced self and role at [facility]. Patient lying in bed, alert and oriented, son at bedside. Patient willing to participate in assessment and is able to answer all questions appropriately. Care providers, pharmacy, and demographics verified. Patient wishes to discharge home, denies need for home health at this time. Patient states she has no further needs or concerns at this time. CM to follow for discharge planning needs that may arise. PCP: Steve Hill Specialists: None Preferred Pharmacy: [facility] Insurance: [facility] [place] Prescription Benefit: yes, [employer] Living Will/HPOA: Yes, Cheng Dumont son LNOK: son Living Arrangements: Patient lives alone in 2 story home with bed and bath on first floor. Patient is independent at home. Transportation: self/family DME/HHC: Patient has shower chair and grab bars at home. Disposition Plan: Patient to discharge home with family support and follow-up plans in place. Pat PEDERSEN, RN, CM
[2018-06-03 11:45] VITALS: BP 127/65; PULSE 72; RESP 16; TEMP 36.6; O2SAT 97
== END 2018-06-03 11:46 | disposition home or self-care (01) | DRG 417 ==
LOC: ED 11:12 → MS3 11:32
PROVIDERS: Admitting Provider Surgery; Emergency Provider Emergency Medicine; Family Provider Family Medicine; PCP Family Medicine; Visit Provider Surgery
PROC: 0FT44ZZ Resection of Gallbladder, Percutaneous Endoscopic Approach (ICD-10-PCS; CPT 47610; principal; 2018-06-02 14:25)
DX: K80.00 Calculus of gallbladder with acute cholecystitis without obstruction (principal); K85.10 Biliary acute pancreatitis without necrosis or infection; I10 Essential (primary) hypertension; E89.0 Postprocedural hypothyroidism; Z85.850 Personal history of malignant neoplasm of thyroid
CPT/HCPCS: 36415; 74300; 76000; 76705; 80053; 83690; 84484; 85025; 88304; 93005; 99285; J7030; J7040; J7120; A4216; J2405

== ENCOUNTER → 2018-06-12 14:06 | Outpatient (CLI) | payer MEDICARE, OTHER, SELFPAY ==
[2018-06-02 12:34] VITALS: BMI 32.6
--- NOTE | 2018-06-12 14:09 | CT_ITS ---
STUDY: CT ABDOMEN AND PELVIS WITH CONTRAST REASON FOR EXAM: Female, 67 years old. Follow-up after cholecystectomy 8 days ago. RADIATION DOSAGE (If Supplied By Facility): CTDIvol = ( 15.59 ) mGy, DLP = ( 1019.99 ) mGycm TECHNIQUE: Transaxial images were obtained from the dome of the diaphragm to the symphysis pubis with oral contrast. 100 ml IV of Isovue 300 was administered. Sagittal and coronal images were reconstructed. Individualized dose optimization techniques were used for this CT. COMPARISON: CT of the abdomen and pelvis dated April 30, 2017 is not available for comparison at the time of dictation. Report from this study is is also not available for comparison. Ultrasound of the abdomen dated April 30, 2017 was available for comparison. FINDINGS: The visualized lung bases are unremarkable. The visualized portions of the heart are within normal limits. There is hepatomegaly with diffuse hepatic enlargement. Maximal cephalocaudal dimension of the liver is 18.8 cm. There is non-visualization of the gallbladder consistent with recent cholecystectomy. Small amount of postoperative fluid is visible in the gallbladder fossa consistent with the recent surgery. Normal spleen. Normal pancreas. Normal bilateral adrenal glands. Normal right kidney. Normal left kidney. Normal visualized stomach. There is no evidence for dilated bowel, ascites or pneumoperitoneum. Small bowel has a grossly normal appearance. Anterior contrast is visible throughout the colon with scattered diverticula. The appendix is visualized and appears normal. There is mild multifocal atherosclerotic calcification of the abdominal aorta with elongation and tortuosity, but without a demonstrated aneurysm. The IVC is slitlike suggesting hypovolemia and/or dehydration. Normal retroperitoneum. Normal urinary bladder. Normal visualized uterus. Normal abdominal wall. There are diffuse degenerative changes of the visualized lumbar spine. There is mild curvature of the lumbar spine with convexity towards the left. CT/Abdomen/Pelvis WITH Contrast IMPRESSION: 1. Status post recent cholecystectomy. 2. Mild hepatomegaly. Electronically Signed: Jolly Hill MD at 5:51 EDT , Service support ,
== END ==
PROVIDERS: Family Provider Family Medicine; PCP Family Medicine; Referring Provider Family Medicine; Visit Provider Family Medicine
DX: K85.10 Biliary acute pancreatitis without necrosis or infection (principal)
CPT/HCPCS: 74177; Q9967

== ENCOUNTER → 2018-09-22 | Outpatient (CLI) | payer MEDICARE, OTHER, SELFPAY ==
[2018-06-02 12:34] VITALS: BMI 32.6
[2018-09-22 10:52] LABS: Anion Gap 3 (5-15); BUN 16 mg/dL (7-18); BUN/Creat Ratio 18.9 RATIO (10-20); Calcium,Total 9.1 mg/dL (8.5-10.1); Chloride 106 mmol/L (98-107); Creatinine, Serum 0.85 mg/dL (0.55-1.02); EST Glomerular Filtration Rate 71 mL/min (>60); Est Glom Filt Rate - Afr Amer 86 mL/min (>60); Glucose 92 mg/dL (74-106); Sodium Level 139 mmol/L (136-145); Thyroid Stim Hormone (TSH) 0.16 uIU/mL (0.358-3.74)
== END | disposition home or self-care (01) ==
LOC: MFPLAB 09:05
PROVIDERS: Family Provider Family Medicine; PCP Family Medicine; Referring Provider Family Medicine; Visit Provider Family Medicine
DX: I10 Essential (primary) hypertension (principal); E03.9 Hypothyroidism, unspecified
CPT/HCPCS: 36415; 80048; 84443

== ENCOUNTER → 2018-12-11 | Outpatient (CLI) | payer MEDICARE, OTHER, SELFPAY ==
[2018-06-02 12:34] VITALS: BMI 32.6
[2018-12-11 18:04] LABS: Amylase 52 U/L (25-115); Lipase 83 U/L (73-393)
== END | disposition home or self-care (01) ==
LOC: MFPLAB 15:59
PROVIDERS: Family Provider Family Medicine; PCP Family Medicine; Referring Provider Family Medicine; Visit Provider Family Medicine
DX: R19.7 Diarrhea, unspecified (principal)
CPT/HCPCS: 36415; 82150; 83690

== ENCOUNTER → 2018-12-14 | Outpatient (CLI) | payer MEDICARE, OTHER, SELFPAY ==
[2018-06-02 12:34] VITALS: BMI 32.6
== END | disposition home or self-care (01) ==
LOC: MFPLAB 11:55
PROVIDERS: Family Provider Family Medicine; PCP Family Medicine; Visit Provider Family Medicine
DX: R19.7 Diarrhea, unspecified (principal)
CPT/HCPCS: 87506

== ENCOUNTER → 2019-04-22 | Outpatient (CLI) | payer MEDICARE, OTHER, SELFPAY ==
[2019-04-20 14:26] VITALS: BMI 32.6
[2019-04-22 10:26] LABS: Anion Gap 4 (5-15); BUN 15 mg/dL (7-18); BUN/Creat Ratio 15.7 RATIO (10-20); Chloride 106 mmol/L (98-107); Creatinine, Serum 0.96 mg/dL (0.55-1.02); EST Glomerular Filtration Rate 61 mL/min (>60); Est Glom Filt Rate - Afr Amer 74 mL/min (>60); Free T3 2.6 pg/mL (2.18-3.98); Glucose 101 mg/dL (74-106); Potassium 4.1 mmol/L (3.5-5.1); Sodium Level 141 mmol/L (136-145); T4 Free Direct 1.43 ng/dL (0.76-1.46); Thyroid Stim Hormone (TSH) 0.55 uIU/mL (0.358-3.74)
[2019-04-22 10:41] LABS: Vitamin D,25 Hydroxy 34.2 ng/mL (29.95-100.01)
[2019-04-22 14:41] LABS: Microalbumin,Random Urine < 5.0 mg/L (NO RANGE EST.)
== END | disposition home or self-care (01) ==
LOC: MFPLAB 08:45
PROVIDERS: PCP Family Medicine; Referring Provider Family Medicine; Visit Provider Family Medicine
DX: I10 Essential (primary) hypertension (principal); E03.9 Hypothyroidism, unspecified; M85.80 Other specified disorders of bone density and structure, unspecified site
CPT/HCPCS: 36415; 80048; 82043; 82306; 82570; 84439; 84443; 84481

== ENCOUNTER → 2019-05-04 | Outpatient (CLI) | payer MEDICARE, OTHER, SELFPAY ==
[2019-04-20 14:26] VITALS: BMI 32.6
--- NOTE | 2019-05-04 12:15 | RAD_ITS ---
STUDY: X-RAY - LEFT HAND, ATTENTION THIRD FINGER REASON FOR EXAM: Female, 68 years old. Pain and cyst in third digit. TECHNIQUE: view(s) of the finger were obtained. COMPARISON: None. FINDINGS: Osteopenia. Moderate arthrosis of the MCP and IP joints. Focal soft tissue swelling at the DIP joint of the third digit. RAD/Finger(s) Min 2 Views IMPRESSION: Osteopenia with osteoarthritic changes. Focal soft tissue swelling at the DIP joint of the third digit. Electronically Signed: Juan Cota MD at 13:04 EST , Service support ,
== END | disposition home or self-care (01) ==
LOC: RAD 12:06
PROVIDERS: PCP Family Medicine; Referring Provider Surgery; Visit Provider Surgery
DX: M67.442 Ganglion, left hand (principal); L60.8 Other nail disorders
CPT/HCPCS: 73140

== ENCOUNTER 2019-05-07 10:07 | Day surgery (SDC) | payer MEDICARE, OTHER, SELFPAY ==
[2019-04-20 14:26] VITALS: BMI 32.6
--- NOTE | 2019-05-06 22:38 | HP.PCM_ITS ---
History and Physical Date of Admission: 05/07/19 HISTORY OF PRESENT ILLNESS 68 year old woman presents with a soft tissue mass dorsum left long finger on ulnar aspect at DIP joint near the eponychial fold that has increased in size over the last several months. She has noticed some nail grooving as well. She denies any functional problems. She denies any numbness. She denies any trauma. She denies any recent infection or drainage. She is left hand dominant. She presents at this time for further evaluation and treatment. X- ray from 05/04/19 was done. It showed Osteopenia. Moderate arthrosis of the MCP and IP joints. Focal soft tissue swelling at the DIP joint of the third digit. PAST MEDICAL HISTORY HTN (hypertension) Thyroid cancer Hypothyroidism Acute calculous cholecystitis Acute pancreatitis Gallstone pancreatitis IBS (irritable bowel syndrome) PAST SURGICAL HISTORY laparoscopic cholecystectomy thyroidectomy ALLERGIES Latex, Natural Rubber Sulfa (Sulfonamide Antibiotics) MEDICATIONS Bupropion HCl [Wellbutrin Xl] Omeprazole [Prilosec] levothyroxine losartan FAMILY HISTORY Sister - Breast cancer Other - Diabetes, Hypertension SOCIAL HISTORY alcohol intake: never substance use type: does not use smoking: does not smoke REVIEW OF SYSTEMS General - Denies fever, fatigue, and weight loss. Eyes - Denies cataracts and glaucoma. ENT - Denies nasal congestion and sore throat. Endocrine - Denies excessive thirst and urination. Skin - Denies suspicious lesions and skin cancer. Has soft tissue mass dorsum left long finger on ulnar aspect at DIP joint near the eponychial fold. Has nail grooving. Musculoskeletal - Denies joint pain, joint stiffness, weakness of muscles and joints, back pain, and arthritis. Neuro - Denies headaches. Cardiovascular - Denies chest pain, fatigue, and shortness of breath with exertion. Psych - Denies anxiety and depression. Respiratory - Denies chronic cough and shortness of breath. Gastrointestinal - Denies nausea, vomiting, diarrhea, and constipation. Hematologic - Denies abnormal bruising and bleeding. Genitourinary - Denies hematuria and urinary frequency. PHYSICAL EXAMINATION General - Alert and Oriented. HEENT - PERRL. EOMI. Throat is clear. Neck - Supple and nontender. No cervical adenopathy. Lungs - Clear to auscultation. Heart - Regular rate and rhythm. Abdomen - Soft and nondistended. Extremities - FROM. No axillary adenopathy. Radial pulses are palpable. Patient is left hand dominant. On the dorsum left long finger on ulnar aspect at DIP joint near the eponychial fold is a soft tissue mass that measures 1 cm. The overlying skin is thin. No ulceration. The mass is clinically consistent with a mucous cyst. There is some nail grooving on the ulnar aspect. No evide nce of infection. No sensory deficits. Fingers are warm with good capillary refill. Neuro - CN II-XII grossly intact. Psych - Normal mood and affect. ASSESSMENT 1. 1 cm soft tissue mass clinically consistent with a mucous cyst dorsum left long finger on ulnar aspect at DIP joint near the eponychial fold. 2. Nail grooving ulnar aspect left long finger from mucous cyst. PLAN The patient has a soft tissue mass dorsum left long finger on ulnar aspect at DIP joint near the eponychial fold that is clinically consistent with a mucous cyst. There is some nail grooving on the ulnar aspect secondary to pressure on the nail growth center from the mucous cyst. There is thinning of the skin overlying the mass and it is recommended to excise this mass along with underlying bony spurs at the DIP joint to minimize recurrence. Will send the mass to Pathology for analysis to rule out carcinoma. Sometimes extension of this mass goes to the other side of the finger as well as underneath the extensor tendon. It is important to have adequate exploration and removal of all the remnants of the mucous cyst to minimize recurrence. Since the overlying thinning skin will need to be removed, wound closure will be difficult especially with extension of the mass to the eponychial fold. A local dorsal advancement skin flap will be necessary for closure. A skin graft would not be adequate because of exposed bone after excision of the bony spurs at the DIP joint area. Surgery will be done under local anesthesia with a digital metacarpal block and IV sedation on an outpatient basis. A digital tourniquet will be used as well. Prior to surgery, an x-ray was done on 05/04/19. It showed osteopenia and moderate arthrosis of the MCP and IP joints and focal soft tissue swelling at the DIP joint of the third digit. With pressure off the nail growth center, the nail grooving should improve. It may or may not totally resolve depending on the amount of chronic scarring present within the nail growth center itself. Patient was informed of the risks and complications of the procedure including alternatives to surgery. These were discussed with the patient personally. Patient voices understanding and wishes to proceed. Some of the risks and complications were included in a form from the [employer]. Some of the risks and complications that were discussed included but were not inclusive of failure to diagnose including symptom relief, pain, infection, numbness, stiffness, loss of digit, RSD (CRPS), need for further surgery, contracture, and wound healing problems.
[2019-05-07] VITALS (7 sets, daily range): BP systolic 101–113; BP diastolic 53–71; PULSE 64–83; RESP 16; TEMP 36.3–36.9; O2SAT 93–98; BMI 31.8
[2019-05-07] MEDS: Lactated Ringers 1,000 ML 100 ML IV (11:00)
--- NOTE | 2019-05-07 11:45 | CYST_PTH ---
PATIENT: ERIKA MARTÍNEZ [place] [facility] [place][id number] AGE/SX: 68/F ROOM: RE05/07/[address]: Dr. Richard Tsang MD : 1950 BED: DIS: 05/07/2019 SPEC #: [id number] RECD: 05/07/19 14:10 STATUS: SHIKHA RERonny #: [id number] LADI: 05/07/19 11:[address]: Richard Tsang DEPT: SURGICAL PATHOLOGY RECD BY: Charity Pike ENTERED: 05/07/19 14:34 SP TYPE: Cyst OTHR DR: Dr. Garrick Tello MD Tissues: CYST Procedures: Surgery Specimen Level III HEADER OPERATION: Excision mucous cyst, long finger, possible skin flap PRE-OP DIAGNOSIS: 1 cm soft tissue mass consistent with mucous cyst dorsum left long finger on ulnar aspect at DIP joint near eponychial fold TISSUE SUBMITTED: Mucous cyst left long finger MICROSCOPIC DIAGNOSIS Mucous cyst left long finger: Consistent with ganglion cyst. See comment. ASHOK:adriana 05/10/19 SJ:adriana 05/14/19 COMMENT Fragments of bone is also noted in the specimen. MICROSCOPIC DESCRIPTION Slides are reviewed. GROSS DESCRIPTION Received in fixative is one container labeled with the patient's name and designated mucous cyst left long finger. The specimen consists of multiple irregular fragments of ramos soft tissue that in aggregate measure 1.5 x 0.6 x 0.2 cm. The entire specimen is submitted in one cassette. / ASHOK:adriana 05/07/19 TC:5 CPT: 00497
--- NOTE | 2019-05-07 11:45 | CYST_PTH ---
PATIENT: ERIKA MARTÍNEZ LOC: [facility] U#:[id number] AGE/SX: 68/F ROOM: RE05/07/[address]: Dr. Richard Tsang MD : 1950 BED: DIS: 05/07/2019 SPEC #: [id number] RECD: 05/07/19 14:10 STATUS: SHIKHA RERonny #: [id number] LADI: 05/07/19 11:[address]: Richard Tsang DEPT: SURGICAL PATHOLOGY RECD BY: Charity Pike ENTERED: 05/07/19 14:34 SP TYPE: Cyst OTHR DR: Dr. Garrick Tello MD Tissues: CYST Procedures: Surgery Specimen Level III HEADER OPERATION: Excision mucous cyst, long finger, possible skin flap PRE-OP DIAGNOSIS: 1 cm soft tissue mass consistent with mucous cyst dorsum left long finger on ulnar aspect at DIP joint near eponychial fold TISSUE SUBMITTED: Mucous cyst left long finger MICROSCOPIC DIAGNOSIS Mucous cyst left long finger: Consistent with gangrene cyst. See comment. ASHOK:adriana 05/10/19 COMMENT Fragments of bone is also noted in the specimen. MICROSCOPIC DESCRIPTION Slides are reviewed. GROSS DESCRIPTION Received in fixative is one container labeled with the patient's name and designated mucous cyst left long finger. The specimen consists of multiple irregular fragments of ramos soft tissue that in aggregate measure 1.5 x 0.6 x 0.2 cm. The entire specimen is submitted in one cassette. / ASHOK:adriana 05/07/19 TC:5 CPT: 45786
[2019-05-07] MEDS: Cefazolin 2 GM in 0.9% Normal Saline 100 ML IV (12:03)
[2019-05-07] MEDS: Mupirocin Ointment 22gm Tube 1 APPLIC (12:47)
--- NOTE | 2019-05-07 13:02 | PCM.OPRPT ---
Report of Operation Date of Procedure: 05/07/19 Pre-Operative Diagnosis: 1. 1 cm soft tissue mass clinically consistent with a mucous cyst dorsum left long finger on ulnar aspect at DIP joint near the eponychial fold. 2. Nail grooving ulnar aspect left long finger from mucous cyst. Post-Operative Diagnosis: 1. 1.2 cm mucous cyst dorsum left long finger on ulnar aspect at DIP joint near the eponychial fold. 2. Nail grooving ulnar aspect left long finger from mucous cyst. Surgery/Procedure Performed:: Excision 1.2 cm mucous cyst dorsum left long finger on ulnar aspect at DIP joint near the eponychial fold. Description of Surgical Findings:: 68 year old woman presents with a soft tissue mass dorsum left long finger on ulnar aspect at DIP joint near the eponychial fold that has increased in size over the last several months. She has noticed some nail grooving as well. She denies any functional problems. She denies any numbness. She denies any trauma. She denies any recent infection or drainage. She is left hand dominant. X-ray from 05/04/19 was done. It showed Osteopenia. Moderate arthrosis of the MCP and IP joints. Focal soft tissue swelling at the DIP joint of the third digit. Patient was informed of the risks and complications of the procedure including alternatives to surgery. These were discussed with the patient personally. Patient voices understanding and wishes to proceed. Some of the risks and complications were included in a form from the [employer] [employer]. Some of the risks and complications that were discussed included but were not inclusive of failure to diagnose including symptom relief, pain, infection, numbness, stiffness, loss of digit, RSD (CRPS), need for further surgery, contracture, and wound healing problems. Total tourniquet time - 37 minutes. maintenance mechanic elevators: None Type of Anesthesia:: Local MAC - xylocaine with epinephrine digital metacarpal block with IV sedation. Specimen's removed: Mucous cyst dorsum left long finger on ulnar aspect at DIP joint near the eponychial fold to Pathology. Drains: None. Estimated Blood Loss (mL): 5 ml. Description of Procedure: Patient was taken to OR in supine position and was given IV sedation. The left long finger was prepped and draped in the usual fashion. SCD's were placed for DVT prophylaxis. Perioperative antibiotics were given intravenously. The base of the left long finger at the metacarpal level was infiltrated with xylocaine and epinephrine. After waiting 5 minutes for the anesthetic to take effect, I placed a tourniquet at the base of the left long finger. The mass had enlarged a little bit since the office visit. The overlying skin looked viable. So I made a zig zag incision just proximal to the eponychial fold to encompass the mass. Depending on the extent of the mass or the integrity of the skin flap, this zig zag incision can be extended down the dorsal ulnar aspect of the finger to fashion a skin flap for closure if necessary. I dissected down to the extensor tendon. The mucous cyst was seen. It was adherent to the extensor tendon and extended ulnarly and proximally. The mass was excised off the extensor tendon. The extensor tendon was intact. Further dissection was carried down to the bone. There was some osteophytic spurs at the level of the DIP joint and they were excised with rongeurs to minimize recurrence. Further exploration showed there was no cyst extension underneath the tendon and there was no cyst seen on the radial aspect of the tendon. There was some capsular tissue extending to the eponychial fold which was also excised to minimize recurrence. The excised tissue and bone were sent to Pathology for analysis to rule out carcinoma. The wound was irrigated with saline. At the time of closure of the wound, the tourniquet was released after 37 minutes. I wanted to make sure there was good vascularity on the zig zag skin flap. If not then further excision would be done and a more extensive dorsal skin flap extending proximally toward the MP joint would be necessary for wound closure. There was good vascularity on the zig zag skin flap. Hemostasis was obtained with electrocautery and gentle compression and elevation. So I proceeded with wound closure by approximating the skin with 5-0 Prolene simple interrupted sutures. Antibiotic ointment was applied to the suture line followed by 2x2 gauze and 2 inch Steffi wrap. Patient tolerated the procedure well and was sent to PACU in satisfactory condition. Patient will be sent home on antibiotics and pain medication. Patient will followup in a week for a wound check and for discussion of the pathology report. The sutures will be removed in two weeks. Will encourage range of motion exercises to minimize stiffness after the sutures are removed. The tendon will have some swelling from the dissection, so it is a little weaker than usual. Will rest the distal tendon for a couple of weeks until the sutures are removed, and then encourage range of motion of the DIP joint as well. Any stiffness issues will necessitate evaluation by OT for range of motion exercises, strengthening, and edema management. Grafts/Implants Used: None. - Complications None. - Admit VTE Documentation VTE Present on Admission: No VTE Mechan Device Prophylaxis: SCD's VTE Pharm Prophylaxis ordered?: No Code Visit Surgery Charges CPT - 77397 ICD-10 - M67.442, L60.8
--- NOTE | 2019-05-07 13:12 | DCINST_ITS ---
You will use the following diet at home:: No restrictions Discharge Activity: May not drive while taking narcotic pain medications., May Shower - wear plastic bag over left hand when showering., - - elevate left hand. no heavy lifting with left hand. May shower in (days): 1 - wear plastic bag over left hand when showering. May resume sexual activity in: No Restrictions Weight Bearing Status: Weight bearing as tolerated Lifting Restrictions: 20 lbs. Keep extremity elevated above heart level: Left Arm Call your doctor if your incision/area has: Continuous Slow Oozing, Sudden Increased Bleeding, Increased Pain/ Swelling, Increased Redness, Foul Smelling Discharge, Swelling at the incision site Call your doctor if you observe: Fever of 101 or Higher, Coldness, Increased Pain, Shortness of breath, Chest pain, Calf discomfort, Uncontrolled pain Suture Line Care: - - after operative dressing removed in the office, apply antibiotic ointment to suture line daily. Change Dressing in (Days):: 7 - will change dressing in office. Cleanse incision/area with: - - wear plastic bag over left hand when showering. Allergies/Adverse Reactions: Allergies Latex, Natural Rubber Allergy (Intermediate, Verified 05/07/19 10:46) BODY RASH Sulfa (Sulfonamide Antibiotics) Allergy (Verified 05/07/19 10:46) Unknown Medications to take at Discharge Bupropion HCl [Wellbutrin Xl] 300 mg PO DAILY 06/01/18 Omeprazole [Prilosec] 20 mg PO PRN PRN 06/01/18 levothyroxine 175 mcg capsule 175 mcg PO DAILY 06/18/18 losartan 25 mg tablet 12.5 mg PO DAILY tab 06/18/18 Cefadroxil [Duricef] 500 mg PO BID #10 cap 05/07/19 Lactobacillus Acidophilus/Fos [Acidophilus Probiotic Tablet] 1 ea PO BID #10 tab 05/07/19 Oxycodone HCl/Acetaminophen [Percocet 5/325] 1 tablet PO Q4H PRN PRN 7 Days #40 tablet 05/07/19 The following prescriptions were given: Lactobacillus Acidophilus/Fos [Acidophilus Probiotic Tablet] 1 ea PO BID #10 tab Transmission Status: Pending to [facility] Cefadroxil [Duricef] 500 mg PO BID #10 cap Transmission Status: Pending to [facility] Oxycodone HCl/Acetaminophen [Percocet 5/325] 1 tablet PO Q4H PRN PRN 7 Days #40 tablet PRN Reason: Pain Score 4-5/10 Transmission Status: Sent to [facility] Primary Care Physician: Garrick Tello MD [Primary Care Provider] - Test Results: Test results from this visit will be discussed in further detail at your follow- up appointment, if applicable. Please Follow Up With: Richard Tsang MD
== END 2019-05-07 14:09 | disposition home or self-care (01) ==
LOC: SDC 10:08 → AC 10:11
PROVIDERS: PCP Family Medicine; Referring Provider Surgery; Visit Provider Surgery
PROC: (CPT 26160; principal; 2019-05-07 11:35)
DX: L72.9 Follicular cyst of the skin and subcutaneous tissue, unspecified (principal); I10 Essential (primary) hypertension; E03.9 Hypothyroidism, unspecified; K58.9 Irritable bowel syndrome, unspecified; K21.9 Gastro-esophageal reflux disease without esophagitis; Z85.850 Personal history of malignant neoplasm of thyroid; Z79.899 Other long term (current) drug therapy
CPT/HCPCS: 01810; 26160; 88304; J7120; J2405

== ENCOUNTER → 2019-09-13 | Outpatient (CLI) | payer MEDICARE, OTHER, SELFPAY ==
[2019-06-11 09:50] VITALS: BMI 31.8
[2019-09-13 16:35] LABS: AST(SGOT) 18 U/L (15-37); Alanine Aminotransfer ALT/SGPT 28 U/L (13-56); Albumin, Serum 3.6 g/dL (3.2-5.0); Alkaline Phosphatase 81 U/L (45-117); Amylase 46 U/L (25-115); Bilirubin, Direct 0.23 mg/dL (0.00-0.30); Lipase 56 U/L (73-393); Protein, Total 7.6 g/dL (6.4-8.2)
== END | disposition home or self-care (01) ==
LOC: MFPLAB 12:20
PROVIDERS: PCP Family Medicine; Visit Provider Family Medicine
DX: R10.9 Unspecified abdominal pain (principal)
CPT/HCPCS: 36415; 80076; 82150; 83690

== ENCOUNTER → 2019-11-30 | Outpatient (CLI) | payer MEDICARE, OTHER, SELFPAY ==
[2019-06-11 09:50] VITALS: BMI 31.8
--- NOTE | 2019-11-30 13:40 | BI_ITS ---
MAMMOGRAPHY - BILATERAL SCREENING REASON FOR EXAM: Female, 69 years old. Routine annual screening examination. PERTINENT HISTORY: Sister with breast cancer. Mother with breast cancer. TECHNIQUE: Digital bilateral breast jovan (3D mammographic acquisition) in the CC and MLO projections. 2-D mediolateral oblique (MLO) and craniocaudad (CC) views of both breasts were obtained. CAD: Full Field Digital Mammography with Computer Added Detection was performed. COMPARISON: Comparison is made with prior examination dated 05/11/2018 and 03/27/2017. FINDINGS: Breast Composition: There are scattered areas of fibroglandular density. There are no dominant masses or suspicious calcifications. The previously seen tiny nodule in the inferior medial portion of the left breast presently measures 2 mm. Documented cysts on prior sonogram. Stable benign-appearing bilateral axillary lymph nodes. No other significant abnormalities are identified. BI/SCREEN MAMM (CAD) W/JOVAN BILAT IMPRESSION: Stable bilateral screening mammogram. Yearly follow-up mammogram recommended. (A) ASSESSMENT CATEGORY: BIRADS Category 2: Benign. A letter regarding these results will be sent to the patient by the facility within 30 days. Approximately 10% of breast cancers are not detected by mammography. A normal mammogram should not delay biopsy of a clinically suspicious abnormality. [id number] Electronically Signed: Kam Del Cid, at 15:15 EDT , Service support ,
--- NOTE | 2019-11-30 13:52 | BD_ITS ---
STUDY: DUAL ENERGY X-RAY ABSORPTIOMETRY / DXA REASON FOR EXAM: Female, 69 years old. 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 COMPARISON: Comparison is made with prior study dated 03/09/2015. FINDINGS: Lumbar Spine (L1-L4): g/cm2 (1.173) / T-score (0.1) / Z-score (1.8) Findings are suggestive of normal bone density with a low fracture risk. Left Femur Total: g/cm2 (0.827) / T-score (-1.4) / Z-score (0.1) Left Femoral Neck: g/cm2 (0.818) / T-score (-1.6) / Z-score (0.2) Right Femur Total: g/cm2 (0.815) / T-score (-1.5) / Z-score (0.0) Right Femoral Neck: g/cm2 (0.816) / T-score (-1.6) / Z-score (0.1) The T-Scores on the most recent prior examination were: Lumbar Spine (L1-L4): There has been worsening of bone density since the previous examination. Left Femur Total: which represents a worsening of 9.3%. Right Femur Total: which represents a worsening of 2.9%. BD/Dexa Bone Density Study IMPRESSION: The patient is considered osteopenic as outlined below according to World [employer] Organization (WHO) criteria with a moderate fracture risk. There has been worsening of bone density since the previous examination. Reference Information: The T-score is the number of standard deviations above or below the standard which is normal for young adults at their peak bone mineral density. The World Health Organization (WHO) interprets the T-scores as follows: Above -1 Normal bone density Between -1 and -2.5 Osteopenia Equal to / or below -2.5 Osteoporosis As a practical clinical guideline, osteopenia may be graded as follows: Mild -1 through -1.5 Moderate -1.6 through -2.0 Severe -2.1 through -2.4 The Z-score is the number of standard deviations above or below age-matched controls. A Z-score of less than -1.5 would be considered abnormal. References: 1. NIH Osteoporosis and Related Bone Diseases http://www.osteo.org 2. International Society for Clinical Densitometry http://www.iscd.org 3. National Osteoporosis Foundation http://www.nof.org Electronically Signed: Kam Del Cid, at 15:43 EDT , Service support ,
== END | disposition home or self-care (01) ==
LOC: OPBD 13:39
PROVIDERS: PCP Family Medicine; Referring Provider Family Medicine; Visit Provider Family Medicine
DX: Z12.31 Encounter for screening mammogram for malignant neoplasm of breast (principal); Z78.0 Asymptomatic menopausal state; M85.80 Other specified disorders of bone density and structure, unspecified site
CPT/HCPCS: 77063; 77067; 77080

== ENCOUNTER → 2020-04-05 09:01 | Outpatient (CLI) | payer MEDICARE, OTHER, SELFPAY ==
[2019-06-11 09:50] VITALS: BMI 31.8
[2020-04-05 10:08] LABS: Absolute Lymphocyte Count 1.89 X10^3/uL (0.83-4.51); Absolute Neutrophil Count 4.7 X10^3/uL (2.0-7.7); Basophil# 0.08 X10^3/uL; Basophil% 1.1 % (0-1); Eosinophils% 1.4 % (0-5); Hematocrit 43.2 % (37-47); Hemoglobin 13.7 g/dL (12.0-15.0); Lymphocyte # 1.89 X10^3/ul (4.0); Lymphocyte % 25.7 % (19-41); Mean Corp Hgb Conc 31.7 g/dL (32-36); Mean Corpuscular Hgb 28.7 pg (27.0-32.0); Mean Corpuscular Volume 90.6 fL (81-99); Mean Platelet Vol. 10.5 fl (6.2-12.0); Monocyte# 0.56 X10^3/uL; Monocyte% 7.6 % (0-10); NRBC Flagged by Analyzer 0 % (0-5); Neutrophil # 4.68 X10^3/uL (2.7-7.7); Neutrophil % 63.8 % (47-70); Platelet Count 424 K/mm3 (150-450); RBC Distribution Width CV 14.3 % (11.6-14.6); Red Blood Count 4.77 M/mm3 (4.2-5.4); White Blood Count 7.3 K/mm3 (4.4-11.0)
[2020-04-05 10:30] LABS: ALB/GLOB Ratio 0.9 RATIO (0.9-2.4); AST(SGOT) 14 U/L (15-37); Alanine Aminotransfer ALT/SGPT 25 U/L (13-56); Albumin, Serum 3.5 g/dL (3.2-5.0); Alkaline Phosphatase 85 U/L (45-117); Anion Gap 6 (5-15); BUN 16 mg/dL (7-18); BUN/Creat Ratio 18.9 RATIO (10-20); Chloride 106 mmol/L (98-107); Creatinine, Serum 0.85 mg/dL (0.55-1.02); EST Glomerular Filtration Rate 70 mL/min (>60); Est Glom Filt Rate - Afr Amer 85 mL/min (>60); Globulin 3.9 g/dL (2.2-4.2); Glucose 95 mg/dL (74-106); Lipase 88 U/L (73-393); Potassium 3.9 mmol/L (3.5-5.1); Protein, Total 7.4 g/dL (6.4-8.2); Sodium Level 139 mmol/L (136-145)
== END ==
PROVIDERS: PCP Family Medicine; Referring Provider Family Medicine; Visit Provider Family Medicine
DX: R10.11 Right upper quadrant pain (principal)
CPT/HCPCS: 36415; 80053; 83690; 85025

== ENCOUNTER → 2020-04-06 | Outpatient (CLI) | payer MEDICARE, OTHER, SELFPAY ==
[2019-06-11 09:50] VITALS: BMI 31.8
== END | disposition home or self-care (01) ==
LOC: LABSPEC 11:28
PROVIDERS: PCP Family Medicine; Referring Provider Family Medicine; Visit Provider Family Medicine
DX: R10.11 Right upper quadrant pain (principal)
CPT/HCPCS: 83986

== ENCOUNTER → 2020-04-07 08:30 | Outpatient (CLI) | payer MEDICARE, OTHER, SELFPAY ==
[2019-06-11 09:50] VITALS: BMI 31.8
--- NOTE | 2020-04-07 08:36 | US_ITS ---
STUDY: ABDOMINAL ULTRASOUND - RIGHT UPPER QUADRANT REASON FOR VISIT: Female, 69 years old RUQ PAIN PRE AND POST MEALS CHOECYSTECTOMY 2018 TECHNIQUE: Ultrasound evaluation of the right upper quadrant was performed with real-time and static skaggs-scale imaging. TECHNICAL QUALITY: Adequate. COMPARISON: 06/01/2018 FINDINGS: Liver: The liver measures 19.3 cm. There is normal echogenicity of the liver. The bile ducts are within normal limits. There is hepatic color flow. The direction of portal flow is hepatopetal. There is no demonstrated mass lesion. Gallbladder: The patient is status post cholecystectomy.. Common Bile Duct (C.B.D.): The common bile duct measures 5 mm. Pancreas: Normal size of the head, body and tail of the pancreas. There is normal echogenicity of the pancreas. There is no demonstrated pancreatic mass or cyst. Right Kidney: Normal size of the right kidney. The right kidney measures 11.0 cm. Normal renal cortex. The right cortex measures 1.3 cm. There is no demonstrated renal mass or cyst. There is no right hydronephrosis. US/Abdomen Limited IMPRESSION: Normal right upper quadrant ultrasound examination after cholecystectomy. Electronically Signed: Srinivasan Garibay MD at 17:00 EST Tel , Service support ,
== END ==
PROVIDERS: PCP Family Medicine; Referring Provider Family Medicine; Visit Provider Family Medicine
DX: R10.11 Right upper quadrant pain (principal)
CPT/HCPCS: 76705

== ENCOUNTER → 2020-04-28 08:08 | Outpatient (CLI) | payer MEDICARE, OTHER, SELFPAY ==
[2019-06-11 09:50] VITALS: BMI 31.8
--- NOTE | 2020-04-28 08:14 | CT_ITS ---
STUDY: CT ABDOMEN AND PELVIS WITH CONTRAST REASON FOR EXAM: Female, 69 years old. RLQ/LOWER BACK PAIN X MONTHS. BLOATING, GAS, NAUSEA. RADIATION DOSAGE (If Supplied By Facility): CTDIvol = ( 15.58 ) mGy, DLP = ( 1010.69 ) mGycm TECHNIQUE: Transaxial images were obtained from the dome of the diaphragm to the symphysis pubis with oral contrast. Oral and amp; IV Gastrografin and amp; 100mL Isovue-300 was administered. Sagittal and coronal images were reconstructed. Individualized dose optimization techniques were used for this CT. COMPARISON: Comparison is made with prior examination dated 06/12/2018. FINDINGS: The visualized lung bases are unremarkable. The visualized portions of the heart are within normal limits. There is decreased attenuation of the liver consistent with steatosis. Hepatomegaly. The patient is status post cholecystectomy. Normal spleen. Normal pancreas. Normal bilateral adrenal glands. Normal right kidney. Normal left kidney. There is a small hiatal hernia. Normal small intestine. There is diverticulosis, with thickening of the sigmoid colon wall, and mild pericolonic inflammation changes consistent with acute diverticulitis. The appendix is visualized and appears normal. There is scattered atherosclerotic calcification of the abdominal aorta, without a demonstrated aneurysm. Normal inferior vena cava. Normal retroperitoneum. Normal urinary bladder. Normal abdominal wall. There are diffuse degenerative changes of the visualized lumbar spine. CT/Abdomen/Pelvis WITH Contrast IMPRESSION: Hepatomegaly and fatty infiltration of the liver. Status post cholecystectomy. Findings suggestive of mild degree of noncomplicated acute sigmoid diverticulitis. Electronically Signed: Kam Del Cid MD at 9:12 EST , Service support ,
== END ==
PROVIDERS: PCP Family Medicine; Referring Provider Family Medicine; Visit Provider Family Medicine
DX: R10.31 Right lower quadrant pain (principal)
CPT/HCPCS: 74177; Q9967

== ENCOUNTER → 2020-05-26 13:26 | Outpatient (CLI) | payer MEDICARE, OTHER, SELFPAY ==
[2020-05-22 13:23] VITALS: BMI 35.4
--- NOTE | 2020-05-26 13:29 | RAD_ITS ---
STUDY: X-RAY - RIGHT SHOULDER REASON FOR EXAM: Female, 69 years old. Fall this morning. Pain. TECHNIQUE: 2 view(s) of the shoulder on 4 images. COMPARISON: None. FINDINGS: Mild arthrosis of the glenohumeral. Mild arthrosis of the AC joint. Normal acromion. Sclerosis and cystic change of the greater tuberosity of the humeral head. The soft tissue structures are unremarkable. Normal visualized pulmonary apex. RAD/Shoulder min 2 Views IMPRESSION: Osteoarthritic changes. No acute finding. Electronically Signed: Juan Cota MD at 14:59 EDT , Service support ,
== END ==
PROVIDERS: PCP Family Medicine; Referring Provider Family Medicine; Visit Provider Family Medicine
DX: M25.511 Pain in right shoulder (principal); W19.XXXA Unspecified fall, initial encounter
CPT/HCPCS: 73030

== ENCOUNTER 2020-07-06 10:00 | Outpatient (RCR) | payer MEDICARE, OTHER, SELFPAY ==
[2020-05-22 13:23] VITALS: BMI 35.4
--- NOTE | 2020-06-22 11:20 | HP.PTEVAL_ITS ---
Patient's Visit Information ERIKA MARTÍNEZ is a 69 year old F referred to Physical Therapy by Dr. Parminder Coats MD with a diagnosis of R shoulder pain. Date of Evaluation: 06/21/20 Physical Therapist: Capo Knapp DPT - Visit Plan Frequency: 2x /Week Duration: 4 Weeks Plan: Start with PROM, AAROM progressing strengthening exercises as tolerated. May use US to reduce symptoms/pain management. - Subjective Pt. is here today for her initial evaluation with diagnosis of R shoulder pain. Pt. reports falling in/out of shower ~1 month ago. She reports no changes since the falls. She did have a massage, but no change. Decreased pain: OTC meds. Increase pain: lifting, reaching, sleeping, upper body dressing. No N/T in either UE. She has been icing which is helping a little bit. Pt. is having a lot of trouble lifting her arm. She is hopeful to reduce her symptoms in order to get back to all ADLs and recreational activities without limitations. - Pain R shoulder Pain Intensity (Out of 10): Unrated Pain Intensity Range: 0, 9 Comment: uncomortable currently - Objective POSTURE: Pt. has FH and rounded shoulders. Pt. has R UE guarded at side. PALPATION: pt. has slight tenderness at anterior/lateral subacromial space. No pain throuhgout scapulea or distal biceps tendon. NEURO: Pt. has normalsensatio n throughout BUEs. Normal DTR of biceps and triceps bilaterally. ROM: L shoulder- full motion without issues. R shoulder- PROM: flexion 165deg, abd 145deg, ER at 90deg 75deg mild incraese NW, IR at 90deg 40deg increase NW. AROM: flexion 8deg, abd 10deg, ext 50deg, functional ER external auditory meatus with extreme aberrant motion, functional IR L3 mild increase NW. MMT: L shoulder- 5/5 throughout. R shoulder- flexion 2/5 increase in symptoms, ext 5/5, ER 3+/5 incraese NW, IR 4+/5 NE, abd 3-/5 increase NW. R elbow- 5/5 throughout. - Goals Goal 1:: LTG: Pt. to be I with HEP. Goal Time Frame: 4-6 Weeks Goal 2:: STG: Pt. to sleep throughout the night with 0-1/10 pain in R shoulder. Goal Time Frame: 2-4 Weeks Goal 3:: LTG: Pt. to have increased AROM of R shoulder to atleast 90deg of flexion, abduction and functional ER to C3 with decreased aberrant motion. Goal Time Frame: 4-6 Weeks Goal 4:: LTG: Pt. to have increased strength of RUE by 1/2 grade of all effected musculature. Goal Time Frame: 4-6 Weeks Goal 5:: LTG: Pt. to complete all ADLs with RUE with 0-2/10 pain. Goal Time Frame: 4-6 Weeks - Rehabilitation Potential Physical Therapy Diagnosis: Pt. has signs and symptoms consistent with R shoulder pain. Pt. did have a mechanical fall out of her shower. She has resultant very limited R shoulder ROM and marked weakness with flexion, abd and ER motions. Pt. has not had a measurable improvement since her fall. With the testing today signs point to a RTC tear. I will see her to work on some ROM and stability exercise, but if not improving I will refer back to physician. Rehabilitation Potential: Fair - Anticipated Interventions Patient/Client Instruction: Educate patient on: Condition, Plan of Care, Risk Factors, Benefits of Fitness Program For the Purpose of:: To improve decision making, To facilitate caregiver knowledge, To improve self management, To prevent re-injury, To improve ability to perform tasks related to life management, To improve tolerance to ADL's Therapeutic Exercise to Include: Strength training, Body mechanics, Postural training, Flexibilty training, Passive ROM, Active ROM, Scapular Strength/Stabilization For the Purpose of:: To decrease pain, To increase ROM, To improve nutrient delivery to tissue, To increase oxygenation perfusion, To improve muscle performance and motor function, To improve ability to perform ADL's, To improve health of tissue, To decrease soft tissue restriction, To increase flexibility/ROM Manual Therapy Techniques to Include: Mobilization, Passive ROM, Soft tissue mobilization For the Purpose of:: To decrease pain, To decrease swelling/inflammation, To increase ROM, To improve nutrient delivery to tissue Cryotherapy (ice pack, ice massage): Yes Ultrasound (thermal/non thermal): Yes For the Purpose of:: To decrease pain, To decrease swelling/inflammation, To increase ROM Thank you for the opportunity to evaluate your patient. For Medicare and Medicare HMO plans, please review the plan of care and approve it. It will need to be FAXED BACK to us at [phone] for Medicare purposes. For Medicare only, by signing this I certify the plan of care. Please let me know if there are questions or concerns regarding this plan of care. Physician Signature: Date:
--- NOTE | 2020-07-06 16:13 | HP.PTREVAL_ITS ---
Dr. Parminder Coats MD, It has been my pleasure to treat ERIKA MARTÍNEZ over the last 5 visits for R shoulder pain. Please see the progress note below for an update on the physical therapy plan of care! Subjective: Pt. came into the clinic today with pain in the shoulder. She stated that the band work she was doing at home did aggravate her symptoms and she had achey pain in her shoulder. She also states that she is now having pain down the posterior arm. Objective/Function: Pt. was able to reach behind her back with minimal pain, but pt. exhibited limitations in flexion, abduction, and reaching overhead. The pt. was able to work on flexion with the arturo's, but stated she was painful. Ultrsound was done to reduce symtpoms and decrease pain. Joint mobilizations were done to decrease pain and increase ROM. Pt. patient feels not noticing a large change in her symptoms and may need further evaluation at this point intime. Plan Plan: Pt. has not shown much progression over the past couple of visits. Plan is to have the pt. meeti with her doctor for further evaluation to determine best course of action. Possible need for MRI to rule in/out more sinister pathology. Goals Goal 1:: LTG: Pt. to be I with HEP. Goal Time Frame: 4-6 Weeks Goal Progress: Progressing Goal 2:: STG: Pt. to sleep throughout the night with 0-1/10 pain in R shoulder. Goal Time Frame: 2-4 Weeks Goal Progress: Not Progressing Goal 3:: LTG: Pt. to have increased AROM of R shoulder to atleast 90deg of flexion, abduction and functional ER to C3 with decreased aberrant motion. Goal Time Frame: 4-6 Weeks Goal Progress: Not Progressing Goal 4:: LTG: Pt. to have increased strength of RUE by 1/2 grade of all effected musculature. Goal Time Frame: 4-6 Weeks Goal Progress: Not Progressing Goal 5:: LTG: Pt. to complete all ADLs with RUE with 0-2/10 pain. Goal Time Frame: 4-6 Weeks Goal Progress: Not Progressing Anticipated Interventions Patient/Client Instruction: Educate patient on: Condition, Plan of Care, Risk Factors, Benefits of Fitness Program For the Purpose of:: To improve decision making, To facilitate caregiver knowledge, To improve self management, To prevent re-injury, To improve ability to perform tasks related to life management, To improve tolerance to ADL's Therapeutic Exercise to Include: Strength training, Body mechanics, Postural training, Flexibilty training, Passive ROM, Active ROM, Scapular Stre ngth/Stabilization For the Purpose of:: To decrease pain, To increase ROM, To improve nutrient delivery to tissue, To increase oxygenation perfusion, To improve muscle perform ance and motor function, To improve ability to perform ADL's, To improve health of tissue, To decrease soft tissue restriction, To increase flexibility/ROM Manual Therapy Techniques to Include: Mobilization, Passive ROM, Soft tissue mobilization For the Purpose of:: To decrease pain, To decrease swelling/inflammation, To increase ROM, To improve nutrient delivery to tissue Cryotherapy (ice pack, ice massage): Yes Ultrasound (thermal/non thermal): Yes For the Purpose of:: To decrease pain, To decrease swelling/inflammation, To increase ROM Please do not hesitate to contact me at [phone] by phone or if you have questions or concerns regarding this new plan of care! Sincerely, Capo Knapp DPT
--- NOTE | 2020-08-15 10:51 | HP.PT.NRP ---
ERIKA MARTÍNEZ was seen in my office for initial evaluation on 06/21/20. The following Plan of Care was established for this patient: Initial Frequency: 2x /Week Initial Duration: 4 Weeks Patient/Client Instruction: Educate patient on: Condition, Plan of Care, Risk Factors, Benefits of Fitness Program For the Purpose of:: To improve decision making, To facilitate caregiver knowledge, To improve self management, To prevent re-injury, To improve ability to perform tasks related to life management, To improve tolerance to ADL's Therapeutic Exercise to Include: Strength training, Body mechanics, Postural training, Flexibilty training, Passive ROM, Active ROM, Scapular Strength/Stabilization For the Purpose of:: To decrease pain, To increase ROM, To improve nutrient delivery to tissue, To increase oxygenation perfusion, To improve muscle performance and motor function, To improve ability to perform ADL's, To improve health of tissue, To decrease soft tissue restriction, To increase flexibility/ROM Manual Therapy Techniques to Include: Mobilization, Passive ROM, Soft tissue mobilization For the Purpose of:: To decrease pain, To decrease swelling/inflammation, To increase ROM, To improve nutrient delivery to tissue Cryotherapy (ice pack, ice massage): Yes Ultrasound (thermal/non thermal): Yes For the Purpose of:: To decrease pain, To decrease swelling/inflammation, To increase ROM This patient was last seen in our office 07/06/20. Pertinent comments regarding their Physical therapy will appear below: Pt. was seen in PT for her arm pain. She was making minimal progress and was referred back to her physician. Pt. has not been seen in several weeks and willbe DC from PT at this point in time. At this point I will be discontinuing this patient from physical therapy. I would be happy to see this patient again in the future if found appropriate by the physician. Thank you! Capo Knapp, RAPHAEL
== END 2020-07-06 19:00 | disposition home or self-care (01) ==
LOC: PT 10:00
PROVIDERS: PCP Family Medicine; Referring Provider Family Medicine; Visit Provider Family Medicine
DX: M25.511 Pain in right shoulder (principal)
CPT/HCPCS: 97035; 97110; 97140; 97161

== ENCOUNTER → 2020-10-19 10:00 | Outpatient (CLI) | payer MEDICARE, OTHER, SELFPAY ==
[2020-05-22 13:23] VITALS: BMI 35.4
[2020-10-19 12:05] LABS: Absolute Lymphocyte Count 2.15 X10^3/uL (0.83-4.51); Absolute Neutrophil Count 4.5 X10^3/uL (2.0-7.7); Basophil# 0.08 X10^3/uL; Basophil% 1.1 % (0-1); Eosinophil# 0.18 X10^3/uL; Eosinophils% 2.4 % (0-5); Hematocrit 42.6 % (37-47); Hemoglobin 13.7 g/dL (12.0-15.0); Lymphocyte # 2.15 X10^3/ul (0.83-4.51); Lymphocyte % 29.1 % (19-41); Mean Corp Hgb Conc 32.2 g/dL (32-36); Mean Corpuscular Hgb 29.1 pg (27.0-32.0); Mean Corpuscular Volume 90.6 fL (81-99); Mean Platelet Vol. 10.4 fl (6.2-12.0); Monocyte% 6.8 % (0-10); NRBC Flagged by Analyzer 0 % (0-5); Neutrophil # 4.46 X10^3/uL (2.7-7.7); Neutrophil % 60.2 % (47-70); Platelet Count 455 K/mm3 (150-450); RBC Distribution Width CV 14.8 % (11.6-14.6); RBC Distribution Width SD 49.2 fl (35.1-43.9); White Blood Count 7.4 K/mm3 (4.4-11.0)
[2020-10-19 12:13] LABS: Erythrocyte Sedimentation Rate 25 mm/hr (0-30)
[2020-10-19 12:27] LABS: ALB/GLOB Ratio 0.9 RATIO (0.9-2.4); AST(SGOT) 15 U/L (15-37); Alanine Aminotransfer ALT/SGPT 35 U/L (13-56); Albumin, Serum 3.6 g/dL (3.2-5.0); Alkaline Phosphatase 84 U/L (45-117); Anion Gap 7 (5-15); BUN 15 mg/dL (7-18); BUN/Creat Ratio 18.9 RATIO (10-20); Calcium,Total 9.3 mg/dL (8.5-10.1); Chloride 101 mmol/L (98-107); EST Glomerular Filtration Rate 76 mL/min (>60); Est Glom Filt Rate - Afr Amer 91 mL/min (>60); Globulin 3.9 g/dL (2.2-4.2); Glucose 92 mg/dL (74-106); Protein, Total 7.5 g/dL (6.4-8.2); Sodium Level 138 mmol/L (136-145)
== END ==
PROVIDERS: PCP Family Medicine; Visit Provider Family Medicine
DX: K57.32 Diverticulitis of large intestine without perforation or abscess without bleeding (principal)
CPT/HCPCS: 36415; 80053; 85025; 85652; 86140

== ENCOUNTER 2020-10-23 14:30 | Outpatient (RCR) | payer SELFPAY ==
[2020-05-22 13:23] VITALS: BMI 35.4
== END 2020-11-07 23:59 ==
LOC: NS 14:30
PROVIDERS: PCP Family Medicine
DX: Z71.3 Dietary counseling and surveillance (principal)
CPT/HCPCS: 97802

== ENCOUNTER 2020-11-14 09:50 | Outpatient (RCR) | payer SELFPAY ==
[2020-11-08 00:43] VITALS: BMI 35.4
== END 2020-12-07 23:59 ==
LOC: NS 09:50
PROVIDERS: PCP Family Medicine
DX: Z71.3 Dietary counseling and surveillance (principal)
CPT/HCPCS: 97803

== ENCOUNTER → 2021-02-07 09:17 | Outpatient (CLI) | payer MEDICARE, OTHER, SELFPAY ==
--- NOTE | 2021-02-07 09:20 | BI_ITS ---
MAMMOGRAPHY - BILATERAL SCREENING REASON FOR EXAM: Female, 70 years old. Routine annual screening examination. PERTINENT HISTORY: Sister with breast cancer. Mother with breast cancer. TECHNIQUE: Digital bilateral breast jovan (3D mammographic acquisition) in the CC and MLO projections. 2-D mediolateral oblique (MLO) and craniocaudad (CC) views of both breasts were obtained. CAD: Full Field Digital Mammography with Computer Added Detection was performed. COMPARISON: Comparison is made with prior study dated 11/30/2019 and 05/11/2018. FINDINGS: Breast Composition: There are scattered areas of fibroglandular density. There are no dominant masses or suspicious calcifications. Stable benign-appearing bilateral axillary lymph nodes. No other significant abnormalities are identified. There has been no significant change since the prior study. BI/SCRN MAMM (CAD)W/JOVAN BILAT IMPRESSION: Stable bilateral screening mammogram. Yearly follow-up mammogram recommended. (A) ASSESSMENT CATEGORY: BIRADS Category 2: Benign. A letter regarding these results will be sent to the patient by the facility within 30 days. Approximately 10% of breast cancers are not detected by mammography. A normal mammogram should not delay biopsy of a clinically suspicious abnormality. [id number] Electronically Signed: Kam Del Cid MD at 10:26 EST , Service support ,
== END ==
PROVIDERS: PCP Family Medicine; Visit Provider Family Medicine
DX: Z12.31 Encounter for screening mammogram for malignant neoplasm of breast (principal)
CPT/HCPCS: 77063; 77067

== ENCOUNTER → 2021-02-21 | Outpatient (CLI) | payer MEDICARE, OTHER, SELFPAY | END | disposition home or self-care (01) | LOC: LABSPEC 02-22 08:22 | PROVIDERS: PCP Family Medicine; Referring Provider Family Medicine; Visit Provider Family Medicine | DX: Z20.822 Contact with and (suspected) exposure to COVID-19 (principal) | CPT/HCPCS: 87635; U0005; U0003 ==

== ENCOUNTER → 2021-02-27 08:56 | Outpatient (CLI) | payer MEDICARE, OTHER, SELFPAY ==
[2021-02-27 10:19] LABS: Thyroid Stim Hormone (TSH) 0.35 uIU/mL (0.358-3.74)
== END ==
PROVIDERS: PCP Family Medicine; Referring Provider Family Medicine; Visit Provider Registered Nurse
DX: L65.9 Nonscarring hair loss, unspecified (principal)
CPT/HCPCS: 36415; 84443